=== PATIENT | male | born 1980 | race Caucasian/White ===

== ENCOUNTER 2017-04-24 22:43 | Inpatient (IN) | payer OTHER ==
[~2017-04-24] VITALS: Ht 190.5 cm; Wt 176.9 kg
[~2017-04-24 22:43] MED LIST: ASPI81TA82 PO; DIGO0.25 PO; ESOM1CAP6 PO
[2017-04-24] MEDS ORDERED: SODIUM CHLOR 0.9% 1000 ML INJ 1,000 ML IV ONE ×2 (23:00)
[2017-04-24] MEDS ORDERED: LORazepam 2 MG/ML VIAL IV PUSH ONE (23:00)
[2017-04-24] MEDS ORDERED: DILTIAZEM HCL 25 MG/5 ML VIAL IV ONE (23:15)
[2017-04-24 23:16] VITALS: BP 147/64; PULSE 136; RESP 18; TEMP 98; O2SAT 98
--- NOTE | 2017-04-24 23:22 | PD ---
HPI Chief Complaint: OD/ Ingestion Time Seen by Provider: 22:46 Travel History International Travel<30 days: No Contact w/Intl Traveler<30days: No Traveled to known affect area: No History of Present Illness HPI 36-year-old male brought in by ambulance from home after being found in his room altered with an empty bottle of diphenhydramine with a receipt that shows it was purchased today. The bottle was for a 48-hour of diphenhydramine 25 mg pills. Patient also had an empty bottle of vodka in the room. He was found by his sister. Patient arrives tachycardic and appears to be hallucinating. He is awake and is able to tell me his name. He does not answer the rest of my questions with appropriate responses, however he does speak clearly. There are no focal neurologic deficits. PFSH Past Medical History Arthritis: No Atrial Fibrillation: Yes Heart Rhythm Problems: Yes (a-fib) Cancer: No Cardiovascular Problems: Yes Chest Pain: No Congestive Heart Failure: No Diabetes: No Diminished Hearing: No Endocrine: No GERD: Yes Genitourinary: No Hiatal Hernia: No Immune Disorder: No Musculoskeletal: No Neurologic: No Psychiatric: No Reproductive: No Respiratory: No Thyroid Disease: No Ulcer: No Social History Alcohol Use: Yes (8 beers/day) Tobacco Use: No Substance Use: No Allergies-Medications (Allergen,Severity, Reaction): Coded Allergies: No Known Allergies (Verified , 06/26/15) Reported Meds & Prescriptions Reported Meds & Active Scripts Active Active Prescriptions or Reported Medications Unobtainable Review of Systems Except as stated in HPI: all other systems reviewed are Neg Physical Exam Narrative GENERAL: Well-developed, well-nourished, overweight, awake, appears to be hallucinating, SKIN: Focused skin assessment warm/dry. HEAD: Atraumatic. Normocephalic. EYES: Pupils equal, round, 3 mm, reactive to light. No scleral icterus. No injection or drainage. ENT: Mucous membranes pink and dry. NECK: Trachea midline. No JVD. CARDIOVASCULAR: Tachycardic, irregularly irregular. RESPIRATORY: No accessory muscle use. Clear to auscultation. Breath sounds equal bilaterally. GASTROINTESTINAL: Abdomen soft, non-tender, nondistended. Hepatic and splenic margins not palpable. MUSCULOSKELETAL: No obvious deformities. No clubbing. No cyanosis. No edema. NEUROLOGICAL: Awake and alert. No obvious cranial nerve deficits. Motor grossly within normal limits. Normal speech. No focal deficits. PSYCHIATRIC: Appears to have auditory and visual hallucinations. Data Data Last Documented VS Vital Signs Date Time Temp Pulse Resp B/P (MAP) Pulse Ox O2 Delivery O2 Flow Rate FiO2 04/25/17 00:03 130 26 158/79 (105) 98 Room Air 04/24/17 23:16 98.0 Orders Orders Complete Blood Count With Diff (04/24/17 22:46) Comprehensive Metabolic Panel (04/24/17 22:46) Electrocardiogram (04/24/17 22:46) Psych Screen (04/24/17 22:46) Drug Screen, Random Urine (04/24/17 22:46) Alcohol (Ethanol) (04/24/17 22:46) Salicylates (Aspirin) (04/24/17 22:46) Tylenol (Acetaminophen) (04/24/17 22:46) Sodium Chlor 0.9% 1000 Ml Inj (Ns 1000 M (04/24/17 23:00) Sodium Chlor 0.9% 1000 Ml Inj (Ns 1000 M (04/24/17 23:00) Lorazepam Inj (Ativan Inj) (04/24/17 23:00) Diltiazem Inj (Cardizem Inj) (04/24/17 23:15) Admit Order (Ed Use Only) (04/25/17 01:48) Labs Laboratory Tests Test 04/24/17 23:00 White Blood Count 10.6 TH/MM3 Red Blood Count 4.35 MIL/MM3 Hemoglobin 15.4 GM/DL Hematocrit 44.5 % Mean Corpuscular Volume 102.2 FL Mean Corpuscular Hemoglobin 35.3 PG Mean Corpuscular Hemoglobin Concent 34.6 % Red Cell Distribution Width 12.8 % Platelet Count 226 TH/MM3 Mean Platelet Volume 9.9 FL Neutrophils (%) (Auto) 76.9 % Lymphocytes (%) (Auto) 12.1 % Monocytes (%) (Auto) 10.2 % Eosinophils (%) (Auto) 0.2 % Basophils (%) (Auto) 0.6 % Neutrophils # (Auto) 8.2 TH/MM3 Lymphocytes # (Auto) 1.3 TH/MM3 Monocytes # (Auto) 1.1 TH/MM3 Eosinophils # (Auto) 0.0 TH/MM3 Basophils # (Auto) 0.1 TH/MM3 CBC Comment DIFF FINAL Differential Comment Blood Urea Nitrogen 14 MG/DL Creatinine 1.30 MG/DL Random Glucose 108 MG/DL Total Protein 7.9 GM/DL Albumin 3.6 GM/DL Calcium Level 9.1 MG/DL Alkaline Phosphatase 65 U/L Aspartate Amino Transf (AST/SGOT) 66 U/L Alanine Aminotransferase (ALT/SGPT) 96 U/L Total Bilirubin 0.6 MG/DL Sodium Level 140 MEQ/L Potassium Level 3.6 MEQ/L Chloride Level 106 MEQ/L Carbon Dioxide Level 19.6 MEQ/L Anion Gap 14 MEQ/L Estimat Glomerular Filtration Rate 62 ML/MIN Salicylates Level LESS THAN 1.7 MG/DL Acetaminophen Level LESS THAN 2.0 MCG/ML Ethyl Alcohol Level 237 MG/DL [facility] Medical Decision Making Medical Screen Exam Complete: Yes Emergency Medical Condition: Yes Differential Diagnosis Anti-cholinergic toxicity, coingestions, alcohol intoxication Narrative Course Initial vital signs show heart rate 136, blood pressure 147/64, pulse ox 98% on room air, oral temp of 98F. CBC: WBC 10.6, hemoglobin 15.4, hematocrit 44.5, MCV 102.2, platelets 226. CMP is remarkable for AST 66, ALT 96, otherwise essentially unremarkable. Tylenol and salicylate levels are negative. Alcohol level is 237. Patient's heart rate was between 140s and 150s, A. fib with RVR. Blood pressure was 160s over 100. Chart review shows that the patient was admitted about a year ago for A. fib with RVR. He was given 20 mg of IV Cardizem and his heart rate improved to the 130s. Repeat EKG showed slight increase in his QRS interval from 104 to 118. Patient was given 2 L of normal saline IV. He was also given 2 mg of IV Ativan. CT brain will be ordered although the patient 's altered mental status/hallucinations are most likely secondary to anticholinergic ingestion/toxicity. Poison control recommended supportive care and monitoring QRS interval. The generation technician refused to perform CT head because the patient seemed to agitated. Case discussed with butt welder Dr. Gaitan who will admit the patient to his service to the ICU. Diagnosis Primary Impression: Anticholinergic drug overdose Qualified Codes: T44.3X2A - Poisoning by other parasympatholytics [ anticholinergics and antimuscarinics] and spasmolytics, intentional self-harm, initial encounter Additional Impressions: Alcohol intoxication Qualified Codes: F10.921 - Alcohol use, unspecified with intoxication delirium Atrial fibrillation with RVR Scripts Unable to Obtain Active Prescriptions or Reported Meds [place] Paul MD Apr 24, 2017 23:22
[2017-04-24 23:25] LABS: AUTOMATED NEUTROPHIL # 8.2 TH/MM3 (1.8-7.7); BASOPHIL # 0.1 TH/MM3 (0-0.2); BASOPHIL % 0.6 % (0.0-2.0); EOSINOPHIL % 0.2 % (0.0-4.0); HEMATOCRIT 44.5 % (39.0-51.0); HEMO FLAGS DIFF FINAL; LYMPH % 12.1 % (9.0-44.0); LYMPHOCYTE # 1.3 TH/MM3 (1.0-4.8); MEAN CELL VOLUME 102.2 FL (80.0-100.0); MEAN CORPUSCULAR HEMOGLOBIN 35.3 PG (27.0-34.0); MEAN CORPUSCULAR HGB CONC 34.6 % (32.0-36.0); MONO % 10.2 % (0.0-8.0); NEUT % 76.9 % (16.0-70.0); PLATELET COUNT 226 TH/MM3 (150-450); RED BLOOD COUNT 4.35 MIL/MM3 (4.50-5.90); RED CELL DISTRIBUTION WIDTH 12.8 % (11.6-17.2); WHITE BLOOD COUNT 10.6 TH/MM3 (4.0-11.0)
[2017-04-24 23:46] LABS: ALKALINE PHOSPHATASE 65 U/L (45-117); TOTAL BILIRUBIN ADULT 0.6 MG/DL (0.2-1.0)
[2017-04-24 23:47] LABS: ALT (GPT) 96 U/L (12-78); ANION GAP 14 MEQ/L (5-15); AST (GOT) 66 U/L (15-37); BICARBONATE 19.6 MEQ/L (21.0-32.0); BLOOD UREA NITROGEN 14 MG/DL (7-18); CHLORIDE 106 MEQ/L (98-107); GLOMERULAR FILTRATION RATE 62 ML/MIN (>89); SODIUM (NA) 140 MEQ/L (136-145)
[2017-04-24 23:50] LABS: ACETAMINOPHEN LESS THAN 2.0 MCG/ML (10.0-30.0); ALCOHOL 237 MG/DL (0-5); POTASSIUM 3.6 MEQ/L (3.5-5.1)
[2017-04-25] VITALS (31 sets, daily range): BP systolic 112–178; BP diastolic 63–114; PULSE 101–140; RESP 22–48; TEMP 97.6–99.2; O2SAT 83–99
[2017-04-25] MEDS ORDERED: ONDANSETRON HCL 4 MG/2 ML VIAL IV PUSH PRN (03:15)
[2017-04-25] MEDS ORDERED: SENNOSIDES 8.6 MG TAB PO PRN (03:15)
[2017-04-25] MEDS ORDERED: HEPARIN SODIUM - SQ 10,000 UNITS/ML VIAL SQ SCH (03:15)
[2017-04-25] MEDS ORDERED: ACETAMINOPHEN 325 MG TAB PO PRN (03:15)
[2017-04-25] MEDS ORDERED: SODIUM CHLORIDE 0.9% FLUSH 10 ML FLUSH IV FLUSH PRN (03:15)
[2017-04-25] MEDS ORDERED: LACTULOSE SYRUP 20 GM/30 ML CUP PO PRN (03:15)
[2017-04-25] MEDS ORDERED: BISACODYL 10 MG SUPP RECTAL PRN (03:15)
[2017-04-25] MEDS ORDERED: CHLORHEXIDINE GLUCONATE 2 % 1 PACK (2 CLOTHS) TOP PRN (03:15)
[2017-04-25] MEDS ORDERED: MISCELLANEOUS NURSING INFORMATION XX SCH (03:15)
[2017-04-25] MEDS ORDERED: MAGNESIUM HYDROXIDE SUSP 30 ML CUP PO PRN (03:15)
[2017-04-25] MEDS ORDERED: RESP: ALBUTEROL 2.5 MG/IPRATROPIUM 0.5 MG NEB (PRN) INH (03:15)
[2017-04-25] MEDS: SODIUM CHLOR 0.9% 1000 ML INJ 1,000 ML IV SCH ×4 (03:46→20:00)
[2017-04-25] MEDS: METOPROLOL TARTRATE 5 MG/5 ML VIAL IV PUSH PRN ×8 (03:47→20:11)
--- NOTE | 2017-04-25 03:48 | HHI.HP ---
HPI Service Critical Care Medicine Primary Care Physician Unknown Admission Diagnosis anticholinergic toxicity, A. fib with RVR, alcohol intoxication Diagnosis: Travel History International Travel<30 Days: No Contact w/Intl Traveler <30 Da: No Traveled to Known Affected Are: No History of Present Illness 36-year-old morbidly obese male brought in by ambulance from home after being found in his room altered with an empty bottle of diphenhydramine with a receipt that shows it was purchased today. The bottle was for a 48 tablets of diphenhydramine 25 mg pills. Patient also had an empty bottle of vodka in the room as well as alcohol level is 271. He was found by his sister. Patient arrives tachycardic and appears to be hallucinating. He is awake and oriented to person only. Review of Systems ROS Unable to obtain patient is lethargic Past Family Social History Allergies: Coded Allergies: No Known Allergies (Verified , 06/26/15) Past Medical History 1) Paroxysmal Atrial Fibrillation x 13 years - no regular treatment - does NOT follow with a physician, only ER visits 2) GERD 3) Obesity 4) Etoh abuse Past Surgical History Non- Reported Medications Reported Meds & Active Scripts Active Active Prescriptions or Reported Medications Unobtainable Active Ordered Medications Current Medications Medications (Trade) Dose Ordered Sig/Mariela Route PRN Reason Start Time Stop Time Status Last Admin Dose Admin Sodium Chloride 1,000 ml @ 184 mls/hr [id number] IV 04/25/17 03:04 Sodium Chloride (NS Flush) 2 ml UNSCH PRN IV FLUSH FLUSH AFTER USING IV ACCESS 04/25/17 03:15 Sodium Chloride (NS Flush) 2 ml BID IV FLUSH 04/25/17 09:00 Acetaminophen (Tylenol) 650 mg Q6H PRN PO PAIN 1-10 AND/OR FEVER >101F 04/25/17 03:15 Famotidine (Pepcid Inj) 20 mg Q12HR IV PUSH 04/25/17 09:00 Ondansetron HCl (Zofran Inj) 4 mg Q6H PRN IV PUSH NAUSEA OR VOMITING 04/25/17 03:15 Albuterol/ Ipratropium (Duoneb Neb) 1 ampule Q2HR NEB PRN INH WHEEZING 04/25/17 03:15 Miscellaneous Information 1 [id number] XX 04/25/17 03:15 Chlorhexidine Gluconate (Chlorhexidine 2% Cloth) 3 pack Taper DAILY@04 TOP 04/25/17 04:00 04/21/18 03:59 Chlorhexidine Gluconate (Chlorhexidine 2% Cloth) 3 pack UNSCH PRN TOP HYGIENIC CARE 04/25/17 03:15 Senna/Docusate Sodium (Estela-Colace) 1 tab BID PO 04/25/17 09:00 Magnesium Hydroxide (Milk Of Magnesia Liq) 30 ml Q12H PRN PO Mild constipation 04/25/17 03:15 Sennosides (Senokot) 17.2 mg Q12H PRN PO Moderate constipation 04/25/17 03:15 Bisacodyl (Dulcolax Supp) 10 mg DAILY PRN RECTAL SEVERE CONSITIPATION 04/25/17 03:15 Lactulose (Lactulose Liq) 30 ml DAILY PRN PO SEVERE CONSITIPATION 04/25/17 03:15 Heparin Sodium (Porcine) (Heparin Inj) 5,000 units Q8H SQ 04/25/17 06:00 Metoprolol Tartrate (Lopressor Inj) 5 mg Q5M PRN IV PUSH HR>110 04/25/17 03:30 Family History - mother living, age 54 A&W - father, medical history unknown - 4 brothers, all alive and well Social History - x 3 yrs with 3 step children - etoh: 8 beers per night - tobacco: former smoker. Smoked for 8 years & quit 9 years ago. Pt averaged 1 /2 ppd x 8 years - no illicit street drugs. Use to smoke marijuana but has not done so for 2 years Physical Exam Vital Signs Vital Signs Date Time Temp Pulse Resp B/P (MAP) Pulse Ox O2 Delivery O2 Flow Rate FiO2 04/25/17 02:32 128 28 141/93 (109) 98 Room Air 04/25/17 00:03 130 26 158/79 (105) 98 Room Air 04/24/17 23:19 135 18 Room Air 04/24/17 23:16 98.0 136 18 147/64 (91) 98 Physical Exam GENERAL: Morbidly obese middle-aged male lethargic SKIN: Warm and dry. HEAD: Normocephalic. EYES: No scleral icterus. No injection or drainage. NECK: Supple, trachea midline. No JVD or lymphadenopathy. CARDIOVASCULAR: Irregularly irregular rate and rhythm without murmurs, gallops, or rubs. Tachycardia RESPIRATORY: Breath sounds equal bilaterally. No accessory muscle use. GASTROINTESTINAL: Abdomen soft, non-tender, nondistended. MUSCULOSKELETAL: No cyanosis, or edema. BACK: Nontender without obvious deformity. NEURO EXAM: Mental Status: The patient is but arousable Cranial Nerves: Pupils are round, reactive to light. Reflexes: Biceps, patellar, and Achilles are 2/4 bilaterally. No clonus. Laboratory Laboratory Tests Test 04/24/17 23:00 White Blood Count 10.6 Red Blood Count 4.35 Hemoglobin 15.4 Hematocrit 44.5 Mean Corpuscular Volume 102.2 Mean Corpuscular Hemoglobin 35.3 Mean Corpuscular Hemoglobin Concent 34.6 Red Cell Distribution Width 12.8 Platelet Count 226 Mean Platelet Volume 9.9 Neutrophils (%) (Auto) 76.9 Lymphocytes (%) (Auto) 12.1 Monocytes (%) (Auto) 10.2 Eosinophils (%) (Auto) 0.2 Basophils (%) (Auto) 0.6 Neutrophils # (Auto) 8.2 Lymphocytes # (Auto) 1.3 Monocytes # (Auto) 1.1 Eosinophils # (Auto) 0.0 Basophils # (Auto) 0.1 CBC Comment DIFF FINAL Differential Comment Blood Urea Nitrogen 14 Creatinine 1.30 Random Glucose 108 Total Protein 7.9 Albumin 3.6 Calcium Level 9.1 Alkaline Phosphatase 65 Aspartate Amino Transf (AST/SGOT) 66 Alanine Aminotransferase (ALT/SGPT) 96 Total Bilirubin 0.6 Sodium Level 140 Potassium Level 3.6 Chloride Level 106 Carbon Dioxide Level 19.6 Anion Gap 14 Estimat Glomerular Filtration Rate 62 Salicylates Level LESS THAN 1.7 Acetaminophen Level LESS THAN 2.0 Ethyl Alcohol Level 237 Result Diagram: 04/24/17 23004/[id number]/172299 Caprini VTE Risk Assessment Caprini VTE Risk Assessment: Mod/High Risk (score >= 2) Caprini Risk Assessment Model Point Value = 1 Point Value = 2 Point Value = 3 Point Value = 5 Age 41-60 Minor surgery BMI > 25 kg/m2 Swollen legs Varicose veins or History of unexplained or recurrent spontaneous Oral contraceptives or hormone replacement Sepsis (< 1 month) Serious lung disease, including pneumonia (< 1 month) Abnormal pulmonary function Acute myocardial infarction Congestive heart failure (< 1 month) History of inflammatory bowel disease Medical patient at bed rest Age 61-74 Arthroscopic surgery Major open surgery (> 45 min) Laparoscopic surgery (> 45 min) Malignancy Confined to bed (> 72 hours) Immobilizing plaster cast Central venous access Age >= 75 History of VTE Family history of VTE Factor V Leiden Prothrombin [id number] Lupus anticoagulant Anticardiolipin antibodies Elevated serum homocysteine Heparin-induced thrombocytopenia Other congenital or acquired thrombophilia Stroke (< 1 month) Elective arthroplasty Hip, pelvis, or leg fracture Acute spinal cord injury (< 1 month) Prophylaxis Regimen Total Risk Factor Score Risk Level Prophylaxis Regimen 0-1 Low Early ambulation 2 Moderate Order ONE of the following: *Sequential Compression Device (SCD) *Heparin 5000 units SQ BID 3-4 Higher Order ONE of the following medications: *Heparin 5000 units SQ TID *Enoxaparin/Lovenox 40 mg SQ daily (WT < 150 kg, CrCl > 30 mL/min) *Enoxaparin/Lovenox 30 mg SQ daily (WT < 150 kg, CrCl > 10-29 mL/min) *Enoxaparin/Lovenox 30 mg SQ BID (WT < 150 kg, CrCl > 30 mL/min) AND/OR *Sequential Compression Device (SCD) 5 or more Highest Order ONE of the following medications: *Heparin 5000 units SQ TID (Preferred with Epidurals) *Enoxaparin/Lovenox 40 mg SQ daily (WT < 150 kg, CrCl > 30 mL/min) *Enoxaparin/Lovenox 30 mg SQ daily (WT < 150 kg, CrCl > 10-29 mL/min) *Enoxaparin/Lovenox 30 mg SQ BID (WT < 150 kg, CrCl > 30 mL/min) AND *Sequential Compression Device (SCD) Assessment and Plan Assessment and Plan Altered mental status - Benadryl overdose - Poison control center notified by ED - Recommendations of supportive care only - Psych evaluation when awake Atrial fibrillation - Metoprolol when necessary to keep heart rate less than 100 Hypertension - Metoprolol and hydralazine when necessary keep SBP less than 150 Alcohol abuse - Monitor for withdrawal - [facility] protocol DVT GI prophylaxis - Teds SCDs - Subcutaneous heparin - Pepcid Critical Care: The total critical care time was 35 minutes. Time to perform other separately billable procedures was not included in the critical care time. Theodore Gaitan MD Apr 25, 2017 3:48 am
[2017-04-25] MEDS ORDERED: hydrALAZINE HCL 20 MG/ML VIAL IV PUSH PRN (04:00)
[2017-04-25] MEDS: CHLORHEXIDINE GLUCONATE 2 % 1 PACK (2 CLOTHS) TOP SCH (04:00)
[2017-04-25] MEDS ORDERED: FLUMAZENIL 0.5 MG/5 ML VIAL IV PUSH PRN (04:00)
[2017-04-25] MEDS ORDERED: LORazepam 2 MG/ML VIAL IV PUSH PRN ×3 (04:00)
[2017-04-25] MEDS ORDERED: LORazepam 1 MG TAB PO PRN (04:00)
[2017-04-25] MEDS ORDERED: LABETALOL HCL 100 MG/20 ML VIAL IV PUSH PRN (04:00)
[2017-04-25] MEDS ORDERED: LORazepam 2 MG TAB PO PRN (04:00)
[2017-04-25] MEDS: LORazepam 2 MG/ML VIAL IV PUSH PRN ×6 (04:11→06:33)
[2017-04-25] MEDS: HEPARIN SODIUM - SQ 10,000 UNITS/ML VIAL SQ SCH ×3 (05:23→19:59)
[2017-04-25] MEDS ORDERED: DEXMEDETOMIDINE INJ 200 MCG in SODIUM CHLORIDE 0.9% INJ 50 ML IV PRN (06:45)
[2017-04-25] MEDS ORDERED: HALOPERIDOL LACTATE 5 MG/ML AMP IV PUSH PRN (06:45)
[2017-04-25] MEDS ORDERED: DEXMEDETOMIDINE HCL 200 MCG/2 ML VIAL IV PUSH ONE (06:45)
[2017-04-25] MEDS: METOPROLOL TARTRATE 5 MG/5 ML VIAL IV PUSH SCH ×3 (07:17→18:22)
[2017-04-25] MEDS ORDERED: DEXMEDETOMIDINE INJ 1,000 MCG in SODIUM CHLORIDE 0.9% INJ 240 ML IV PRN (07:30)
[2017-04-25] MEDS: SODIUM CHLORIDE 0.9% FLUSH 10 ML FLUSH IV FLUSH SCH ×2 (07:41→20:00)
[2017-04-25] MEDS: DOCUSATE SODIUM 50 MG/SENNA 8.6 MG TAB PO SCH ×2 (09:00→19:59)
[2017-04-25] MEDS: FAMOTIDINE 20 MG/2 ML VIAL IV PUSH SCH ×2 (09:57→19:59)
[2017-04-25 10:07] LABS: APTT (PATIENT) 24.2 SEC (24.3-30.1); INTERNATIONAL NORMALIZED RATIO 1.1 RATIO; PROTHROMBIN TIME - PATIENT 11.5 SEC (9.8-11.6)
--- NOTE | 2017-04-25 10:13 | HHI.PR ---
Objective Vitals Vital Signs Date Time Temp Pulse Resp B/P (MAP) Pulse Ox O2 Delivery O2 Flow Rate FiO2 04/25/17 08:39 95 40 04/25/17 06:00 130 04/25/17 05:30 131 04/25/17 05:00 98.7 137 22 158/68 (98) 95 04/25/17 04:38 04/25/17 03:47 135 26 160/90 (113) 98 Room Air 04/25/17 03:45 98 04/25/17 02:32 128 28 141/93 (109) 98 Room Air 04/25/17 00:03 130 26 158/79 (105) 98 Room Air 04/24/17 23:19 135 18 Room Air 04/24/17 23:16 98.0 136 18 147/64 (91) 98 04/25/17 04/25/17 04/26/17 15:00 23:00 07:00 Intake Total 37.1 ml Balance 37.1 ml IV Total 37.1 ml Result Diagram: 04/24/17 2300 04/24/17 2300 Other Results Laboratory Tests Test 04/24/17 23:00 White Blood Count 10.6 TH/MM3 Red Blood Count 4.35 MIL/MM3 Hemoglobin 15.4 GM/DL Hematocrit 44.5 % Mean Corpuscular Volume 102.2 FL Mean Corpuscular Hemoglobin 35.3 PG Mean Corpuscular Hemoglobin Concent 34.6 % Red Cell Distribution Width 12.8 % Platelet Count 226 TH/MM3 Mean Platelet Volume 9.9 FL Neutrophils (%) (Auto) 76.9 % Lymphocytes (%) (Auto) 12.1 % Monocytes (%) (Auto) 10.2 % Eosinophils (%) (Auto) 0.2 % Basophils (%) (Auto) 0.6 % Neutrophils # (Auto) 8.2 TH/MM3 Lymphocytes # (Auto) 1.3 TH/MM3 Monocytes # (Auto) 1.1 TH/MM3 Eosinophils # (Auto) 0.0 TH/MM3 Basophils # (Auto) 0.1 TH/MM3 CBC Comment DIFF FINAL Differential Comment Blood Urea Nitrogen 14 MG/DL Creatinine 1.30 MG/DL Random Glucose 108 MG/DL Total Protein 7.9 GM/DL Albumin 3.6 GM/DL Calcium Level 9.1 MG/DL Alkaline Phosphatase 65 U/L Aspartate Amino Transf (AST/SGOT) 66 U/L Alanine Aminotransferase (ALT/SGPT) 96 U/L Total Bilirubin 0.6 MG/DL Sodium Level 140 MEQ/L Potassium Level 3.6 MEQ/L Chloride Level 106 MEQ/L Carbon Dioxide Level 19.6 MEQ/L Anion Gap 14 MEQ/L Estimat Glomerular Filtration Rate 62 ML/MIN Salicylates Level LESS THAN 1.7 MG/DL Acetaminophen Level LESS THAN 2.0 MCG/ML Ethyl Alcohol Level 237 MG/DL A/P Problem List: (1) Anticholinergic drug overdose ICD Codes: T44.3X1A - Poisoning by other parasympatholytics [anticholinergics and antimuscarinics] and spasmolytics, accidental (unintentional), initial encounter Status: Acute Plan: - Pt is a 36 y/o morbidly obese male with paroxysmal atrial fibrillation who was brought in by ambulance from home on 04/25 after being found in his room altered with an empty bottle of diphenhydramine with a receipt that shows it was purchased that same day. The bottle was for a 48 tablets of diphenhydramine 25 mg pills. Patient also had an empty bottle of vodka in the room as well as alcohol level was 271 at admission. - He was tachycardic upon admission and appeared to be hallucinating. - Pt was admitted to ICU overnight on Precedex - It was felt that his altered mental status was due to Benadryl overdose - Poison control center notified by ED and pt was recommended supportive care only - Psych evaluation when more awake and stable. (2) Atrial fibrillation with rapid ventricular response ICD Codes: I48.91 - Unspecified atrial fibrillation Status: Chronic Plan: - Pt with hx of paroxysmal atrial fibrillation - He is not compliant with medications or followup - His last 2D echo in 06/2015 noted EF 55-60% and mildly dilated LA - Pt currently in A. fib RVR with HR in the 130's - Pt currently n metoprolol IV PRN - Will convert to oral BB when more awake (3) Alcohol intoxication ICD Codes: F10.929 - Alcohol use, unspecified with intoxication, unspecified Status: Acute Plan: - Pt with hx of regular alcohol use - EtOH withdrawal precautions - Pt is on Precedex currently - MVI, thiamine, and folate - Pt will need f/u with [facility] mental health for etoh cessation program after discharge and AA (4) GERD (gastroesophageal reflux disease) ICD Codes: K21.9 - Gastro-esophageal reflux disease without esophagitis Status: Chronic Plan: - PPI - Pepcid (5) Obesity ICD Codes: E66.9 - Obesity, unspecified Status: Chronic Plan: - Following discharge pt will need f/u with a PCP and newsagent to help with weight management - Pt will need outpt w/u for [facility] Problem Qualifiers (1) Anticholinergic drug overdose: Qualified Codes: T44.3X2A - Poisoning by other parasympatholytics [ anticholinergics and antimuscarinics] and spasmolytics, intentional self-harm, initial encounter (2) Alcohol intoxication: Qualified Codes: F10.921 - Alcohol use, unspecified with intoxication delirium Missy Richey Apr 25, 2017 10:13
[2017-04-25 10:50] LABS: ALKALINE PHOSPHATASE 60 U/L (45-117); ALT (GPT) 85 U/L (12-78); ANION GAP 11 MEQ/L (5-15); AST (GOT) 57 U/L (15-37); BICARBONATE 21.3 MEQ/L (21.0-32.0); BLOOD UREA NITROGEN 10 MG/DL (7-18); CHLORIDE 110 MEQ/L (98-107); CREATINE KINASE 301 U/L (39-308); GLOMERULAR FILTRATION RATE 89 ML/MIN (>89); POTASSIUM 4.5 MEQ/L (3.5-5.1); SODIUM (NA) 142 MEQ/L (136-145); TOTAL BILIRUBIN ADULT 0.7 MG/DL (0.2-1.0)
--- NOTE | 2017-04-25 11:35 | PD.PSY.CON ---
Provisional Diagnosis Admission Date Apr 25, 2017 at 01:51 [place]. Major depressive disorder, single episode vs adjustment disorder with depressed mood, alcohol use disorder History of Present Illness Service Psychiatry Consult Requested By Critical care team Reason for Consult Suicidal attempt by overdosing Primary Care Physician Unknown HPI The patient is a 36-year-old morbidly obese man, he has history of hypertension, alcohol use disorder, GERD, no documented psychiatric history, collateral information is not available at this moment, who was brought in by ambulance from home after being found in his room altered with an empty bottle of diphenhydramine with a receipt that shows it was purchased today. The bottle was for a 48 tablets of diphenhydramine 25 mg pills. Patient also had an empty bottle of vodka in the room as well as alcohol level is 271. He was found by his sister. Patient arrives tachycardic and appears to be hallucinating. Initially was confused, disoriented to person. Through the night he has been agitated, very disorganized, at times aggressive. Patient had to be sedated this morning with Precedex. At the moment of the psychiatric evaluation the patient is completely sedated, unable to participate and provide any meaningful information for the psychiatric assessment. 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 Review of Systems ROS Limitations: Unresponsive, Uncooperative Past Family Social History Coded Allergies: No Known Allergies (Verified , 06/26/15) Discontinued Reported Medications Esomeprazole Magnesium (Nexium 24Hr) 20 Mg Cap, 20 MG PO DAILY Y for INDIGESTION , CAP 06/26/15 Aspirin (Aspir-81) 81 Mg Tab, 81 MG PO DAILY, TAB 06/26/15 Discontinued Scripts Digoxin 0.25 mg (Digoxin 0.25 mg) 0.25 Mg Tab, 0.25 MG PO DAILY for afib, #0 TAB Prov:Yung Tomlin MD 06/29/15 Current Medications Medications (Trade) Dose Ordered Sig/Mariela Route Start Time Stop Time Status Last Admin Sodium Chloride 1,000 ml @ 184 mls/hr Q5H27M IV 04/25/17 03:04 04/25/17 10:00 (NS Flush) 2 ml UNSCH PRN IV FLUSH 04/25/17 03:15 04/25/17 07:41 (NS Flush) 2 ml BID IV FLUSH 04/25/17 09:00 04/25/17 07:41 (Tylenol) 650 mg Q6H PRN PO 04/25/17 03:15 (Pepcid Inj) 20 mg Q12HR IV PUSH 04/25/17 09:00 04/25/17 09:57 (Zofran Inj) 4 mg Q6H PRN IV PUSH 04/25/17 03:15 (Duoneb Neb) 1 ampule Q2HR NEB PRN INH 04/25/17 03:15 Miscellaneous Information 1 Q361D XX 04/25/17 03:15 (Chlorhexidine 2% Cloth) 3 pack Taper DAILY@04 TOP 04/25/17 04:00 04/21/18 03:59 (Chlorhexidine 2% Cloth) 3 pack UNSCH PRN TOP 04/25/17 03:15 (Estela-Colace) 1 tab BID PO 04/25/17 09:00 (Milk Of Magnesia Liq) 30 ml Q12H PRN PO 04/25/17 03:15 (Senokot) 17.2 mg Q12H PRN PO 04/25/17 03:15 (Dulcolax Supp) 10 mg DAILY PRN RECTAL 04/25/17 03:15 (Lactulose Liq) 30 ml DAILY PRN PO 04/25/17 03:15 (Heparin Inj) 5,000 units Q8H SQ 04/25/17 06:00 04/25/17 05:23 (Lopressor Inj) 5 mg Q5M PRN IV PUSH 04/25/17 03:30 04/25/17 09:57 (Romazicon Inj) 0.2 mg Q1M PRN IV PUSH 04/25/17 04:00 (Ativan) 1 mg Q4H PRN PO 04/25/17 04:00 (Ativan Inj) 1 mg Q4H PRN IV PUSH 04/25/17 04:00 (Ativan) 2 mg Q2H PRN PO 04/25/17 04:00 (Ativan Inj) 2 mg Q2H PRN IV PUSH 04/25/17 04:00 (Ativan Inj) 2 mg Q1H PRN IV PUSH 04/25/17 04:00 (Ativan Inj) 2 mg Q15M PRN IV PUSH 04/25/17 04:00 04/25/17 06:33 (Trandate Inj) 10 mg Q4H PRN IV PUSH 04/25/17 04:00 04/25/17 05:49 (Apresoline Inj) 20 mg Q4H PRN IV PUSH 04/25/17 04:00 (Haldol Inj) 5 mg Q4H PRN IV PUSH 04/25/17 06:45 (Lopressor Inj) 5 mg Q6H IV PUSH 04/25/17 06:45 04/26/17 08:00 04/25/17 07:17 (Pneumovax-23 Inj) 25 mcg ONCE ONCE IM 04/26/17 10:00 04/26/17 10:01 (Flu (Quadrivalent) Vaccine Inj) 0.5 ml ONCE ONCE IM 04/26/17 10:00 04/26/17 10:01 Dexmedetomidine HCl 1000 mcg/ Sodium Chloride 250 ml @ 9.08 mls/hr TITRATE PRN IV 04/25/17 07:30 04/25/17 08:18 Physical Exam Vital Signs Vital Signs Date Time Temp Pulse Resp B/P (MAP) Pulse Ox O2 Delivery O2 Flow Rate FiO2 04/25/17 10:00 133 38 147/88 (107) 99 04/25/17 08:39 40 04/25/17 08:00 99.2 04/25/17 03:47 Room Air I/O 04/25/17 04/25/17 04/26/17 08:00 16:00 00:00 Intake Total 2360 ml 477.1 ml Balance 2360 ml 477.1 ml Lab Results Test 04/24/17 23:00 04/25/17 09:40 White Blood Count 10.6 TH/MM3 Red Blood Count 4.35 MIL/MM3 Hemoglobin 15.4 GM/DL Hematocrit 44.5 % Mean Corpuscular Volume 102.2 FL Mean Corpuscular Hemoglobin 35.3 PG Mean Corpuscular Hemoglobin Concent 34.6 % Red Cell Distribution Width 12.8 % Platelet Count 226 TH/MM3 Mean Platelet Volume 9.9 FL Neutrophils (%) (Auto) 76.9 % Lymphocytes (%) (Auto) 12.1 % Monocytes (%) (Auto) 10.2 % Eosinophils (%) (Auto) 0.2 % Basophils (%) (Auto) 0.6 % Neutrophils # (Auto) 8.2 TH/MM3 Lymphocytes # (Auto) 1.3 TH/MM3 Monocytes # (Auto) 1.1 TH/MM3 Eosinophils # (Auto) 0.0 TH/MM3 Basophils # (Auto) 0.1 TH/MM3 CBC Comment DIFF FINAL Differential Comment Blood Urea Nitrogen 14 MG/DL 10 MG/DL Creatinine 1.30 MG/DL 0.95 MG/DL Random Glucose 108 MG/DL 105 MG/DL Total Protein 7.9 GM/DL 7.0 GM/DL Albumin 3.6 GM/DL 3.3 GM/DL Calcium Level 9.1 MG/DL 8.2 MG/DL Alkaline Phosphatase 65 U/L 60 U/L Aspartate Amino Transf (AST/SGOT) 66 U/L 57 U/L Alanine Aminotransferase (ALT/SGPT) 96 U/L 85 U/L Total Bilirubin 0.6 MG/DL 0.7 MG/DL Sodium Level 140 MEQ/L 142 MEQ/L Potassium Level 3.6 MEQ/L 4.5 MEQ/L Chloride Level 106 MEQ/L 110 MEQ/L Carbon Dioxide Level 19.6 MEQ/L 21.3 MEQ/L Anion Gap 14 MEQ/L 11 MEQ/L Estimat Glomerular Filtration Rate 62 ML/MIN 89 ML/MIN Salicylates Level LESS THAN 1.7 MG/DL Acetaminophen Level LESS THAN 2.0 MCG/ML Ethyl Alcohol Level 237 MG/DL Prothrombin Time 11.5 SEC Prothromb Time International Ratio 1.1 RATIO Activated Partial Thromboplast Time 24.2 SEC Total Creatine Kinase 301 U/L Mental Status Examination Appearance: Disheveled, Other (obese, age appearing) Mental Status Exam Remarks Limited due to lack of cooperation, patient is sedated Assessment & Plan Problem List: (1) Adjustment disorder with depressed mood ICD Codes: F43.21 - Adjustment disorder with depressed mood Assessment & Plan: As per EMR documentation, [place] act, the patient was brought in by ambulance from home after being found in his room altered with an empty bottle of diphenhydramine with a receipt that shows it was purchased today. The bottle was for a 48 tablets of diphenhydramine 25 mg pills. Patient also had an empty bottle of vodka in the room as well as alcohol level is 271. He was found by his sister. At the moment of the psychiatric evaluation patient is sedated, not able to provide any meaningful information. He has reportedly been agitated, disorganized, at times physically combative. No collateral information couldn't be found at this moment. Patient will continue his aggressive medical treatment. He needs to be transferred to psychiatry once medically stable for psychiatric stabilization and safety. He needs to have a sitter for safety. We'll continue follow-up. Assessment & Plan Estimated LOS: Ramón Guerra MD Apr 25, 2017 11:35
[2017-04-25] MEDS ORDERED: DILTIAZEM HCL 25 MG/5 ML VIAL IV PUSH ONE (13:30)
[2017-04-25] MEDS: DILTIAZEM INJ 125 MG in SODIUM CHLORIDE 0.9% INJ 100 ML IV PRN ×2 (14:06→22:19)
[2017-04-25 14:21] LABS: BLOOD GAS BASE EXCESS -3.7 mmol/L (-2-2); BLOOD GAS CARBOXYHEMOGLOBIN 1.1 % (0-4); BLOOD GAS HCO3 20 mmol/L (22-26); BLOOD GAS METHEMOGLOBIN 1.2 % (0-2); BLOOD GAS O2 HGB SATURATION 90 % (90-100); BLOOD GAS PCO2 30 mmHg (38-42); BLOOD GAS PO2 68 mmHg (61-120); BLOOD GAS TOTAL HGB 14.2 G/DL (12.0-16.0); TEMP CORR TO 98.6
[2017-04-25 14:22] LABS: CRITICAL VALUE NO; DRAW SITE LT RADIAL; FIO2 21 %; NUMBER OF ARTERIAL PUNCTURES 1; STAT NO; ULNAR PULSE PRESENT
--- NOTE | 2017-04-25 14:25 | EKG ---
Date Performed: 04/24/2017 Time Performed: 22:49:35 PTAGE: 36 years EKG: ATRIAL FLUTTER/TACHYCARDIA WITH RAPID VENTRICULAR RESPONSE NONSPECIFIC T-WAVE ABNORMALITY A BNORMAL RHYTHM ECG NO PREVIOUS TRACING DOCTOR: Gaby Baig Interpretating Date/Time 04/25/2017 14:23:23
--- NOTE | 2017-04-25 14:26 | EKG ---
Date Performed: 04/24/2017 Time Performed: 23:37:29 PTAGE: 36 years EKG: ATRIAL FLUTTER/TACHYCARDIA WITH RAPID VENTRICULAR RESPONSE MODERATE INTRAVENTRICULAR CONDUC TION DELAY NONSPECIFIC T-WAVE ABNORMALITY ABNORMAL ECG Compared to prior tracing no significant perry e PREVIOUS TRACING : 06/26/2015 14.31 DOCTOR: Gaby Baig Interpretating Date/Time 04/25/2017 14:23:56
--- NOTE | 2017-04-25 14:26 | EKG ---
Date Performed: 04/25/2017 Time Performed: 02:39:23 PTAGE: 36 years EKG: ATRIAL FLUTTER/TACHYCARDIA WITH RAPID VENTRICULAR RESPONSE NONSPECIFIC T-WAVE ABNORMALITY A BNORMAL RHYTHM ECG Compared to prior tracing no significant change PREVIOUS TRACING : 04/24/2017 23.37 DOCTOR: Gaby Baig Interpretating Date/Time 04/25/2017 14:24:13
--- NOTE | 2017-04-25 22:12 | EKG ---
Date Performed: 04/25/2017 Time Performed: 11:16:48 PTAGE: 36 years EKG: Atrial flutter with block Compared to prior tracing no significant change DOCTOR: Ketty Perez Interpretating Date/Time 04/25/2017 22:11:22
[2017-04-26] VITALS (13 sets, daily range): BP systolic 102–183; BP diastolic 62–115; PULSE 97–128; RESP 21–37; TEMP 97.7–98.8; O2SAT 86–95
[2017-04-26] MEDS: SODIUM CHLOR 0.9% 1000 ML INJ 1,000 ML IV SCH ×5 (00:52→23:54)
[2017-04-26] MEDS: CHLORHEXIDINE GLUCONATE 2 % 1 PACK (2 CLOTHS) TOP SCH ×2 (01:05→23:54)
[2017-04-26] MEDS: METOPROLOL TARTRATE 5 MG/5 ML VIAL IV PUSH SCH ×2 (01:05→05:21)
[2017-04-26 03:58] LABS: BASOPHIL # 0.1 TH/MM3 (0-0.2); BASOPHIL % 0.8 % (0.0-2.0); EOSINOPHIL # 0.1 TH/MM3 (0-0.4); EOSINOPHIL % 1.5 % (0.0-4.0); HEMATOCRIT 40.9 % (39.0-51.0); HEMO FLAGS DIFF FINAL; LYMPH % 10.4 % (9.0-44.0); LYMPHOCYTE # 0.8 TH/MM3 (1.0-4.8); MEAN CELL VOLUME 103.1 FL (80.0-100.0); MEAN CORPUSCULAR HEMOGLOBIN 35.4 PG (27.0-34.0); MEAN CORPUSCULAR HGB CONC 34.3 % (32.0-36.0); MONO % 6.7 % (0.0-8.0); NEUT % 80.6 % (16.0-70.0); PLATELET COUNT 144 TH/MM3 (150-450); RED BLOOD COUNT 3.97 MIL/MM3 (4.50-5.90); WHITE BLOOD COUNT 7.4 TH/MM3 (4.0-11.0)
[2017-04-26 04:06] LABS: INTERNATIONAL NORMALIZED RATIO 1.1 RATIO; PROTHROMBIN TIME - PATIENT 11.5 SEC (9.8-11.6)
[2017-04-26 04:26] LABS: ANION GAP 9 MEQ/L (5-15); AST (GOT) 53 U/L (15-37); BLOOD UREA NITROGEN 11 MG/DL (7-18); CHLORIDE 106 MEQ/L (98-107); GLOMERULAR FILTRATION RATE 87 ML/MIN (>89); MAGNESIUM 1.3 MG/DL (1.5-2.5); POTASSIUM 3.8 MEQ/L (3.5-5.1); SODIUM (NA) 141 MEQ/L (136-145)
[2017-04-26 04:31] LABS: ALKALINE PHOSPHATASE 53 U/L (45-117); ALT (GPT) 76 U/L (12-78); TOTAL BILIRUBIN ADULT 1.1 MG/DL (0.2-1.0)
[2017-04-26] MEDS: HEPARIN SODIUM - SQ 10,000 UNITS/ML VIAL SQ SCH (05:21)
--- NOTE | 2017-04-26 05:32 | RADRPT ---
EXAM DATE/TIME: 04/26/2017 04:22 [place] COMPARISON: CHEST SINGLE AP, June 26, 2015, 14:46. INDICATIONS : Shortness of breath. MEDICAL HISTORY : None. SURGICAL HISTORY : None. ENCOUNTER: Initial ACUITY: 1 day PAIN SCORE: 0/10 LOCATION: Bilateral chest FINDINGS: A single view of the chest demonstrates the lungs to be symmetrically aerated without evidence of mas s, infiltrate or effusion. The cardiomediastinal contours are unremarkable. Osseous structures are intact. CONCLUSION: No acute disease. Phu Farias MD on April 26, 2017 at 5:30 Board Certified Radiologist. This report was verified electronically.
[2017-04-26] MEDS: DILTIAZEM INJ 125 MG in SODIUM CHLORIDE 0.9% INJ 100 ML IV PRN (07:51)
[2017-04-26] MEDS: FAMOTIDINE 20 MG/2 ML VIAL IV PUSH SCH ×2 (08:54→20:31)
[2017-04-26] MEDS: DOCUSATE SODIUM 50 MG/SENNA 8.6 MG TAB PO SCH ×2 (08:54→20:31)
[2017-04-26] MEDS: SODIUM CHLORIDE 0.9% FLUSH 10 ML FLUSH IV FLUSH SCH ×2 (08:55→20:31)
[2017-04-26] MEDS ORDERED: ATENOLOL 50 MG TAB PO SCH (09:00)
--- NOTE | 2017-04-26 09:14 | HHI.CCPN ---
Subjective Remarks/Hospital Course 04/25: 36-year-old morbidly obese male brought in by ambulance from home after being found in his room altered with an empty bottle of diphenhydramine with a receipt that shows it was purchased today. The bottle was for a 48 tablets of diphenhydramine 25 mg pills. Patient also had an empty bottle of vodka in the room as well as alcohol level is 271. He was found by his sister. Patient arrives tachycardic and appears to be hallucinating. He is awake and oriented to person only. 04/26: Awake and alert this morning. Remains in A. fib with RVR on Cardizem drip. Denies any shortness of breath or chest pain currently. Objective Vital Signs Date Time Temp Pulse Resp B/P (MAP) Pulse Ox O2 Delivery O2 Flow Rate FiO2 04/26/17 07:51 106 167/111 04/26/17 04:00 98.3 21 95 04/25/17 19:54 21 04/25/17 03:47 Room Air Intake and Output 04/26/17 04/26/17 04/27/17 08:00 16:00 00:00 Intake Total 2240 ml Output Total 650 ml Balance 1590 ml Result Diagram: 04/26/17 0326 04/26/17 0326 Other Results Laboratory Tests Test 04/25/17 14:15 Blood Gas Puncture Site LT RADIAL Blood Gas Patient Temperature 98.6 Blood Gas HCO3 20 mmol/L (22-26) Blood Gas Base Excess -3.7 mmol/L (-2-2) Blood Gas Oxygen Saturation 90 % (90-100) Arterial Blood pH 7.43 (7.380-7.420) Arterial Blood Partial Pressure CO2 30 mmHg (38-42) Arterial Blood Partial Pressure O2 68 mmHg (61-120) Arterial Blood Oxygen Content 18.0 Vol % (12.0-20.0) Arterial Blood Carboxyhemoglobin 1.1 % (0-4) Arterial Blood Methemoglobin 1.2 % (0-2) Blood Gas Hemoglobin 14.2 G/DL (12.0-16.0) Blood Gas Inspired Oxygen 21 % Imaging Last Impressions Chest X-Ray 04/26/17 0600 Signed Impressions: Service Date/Time: Wednesday, April 26, 2017 04:22 - CONCLUSION: No acute disease. Phu Farias MD Objective Remarks GENERAL: Morbidly obese middle-aged male, laying in bed in no acute distress. SKIN: Warm and dry. HEAD: Normocephalic. EYES: No scleral icterus. No injection or drainage. NECK: Supple, trachea midline. No JVD or lymphadenopathy. CARDIOVASCULAR: Irregularly irregular rate and rhythm without murmurs, gallops, or rubs. Tachycardia RESPIRATORY: Breath sounds equal bilaterally. No accessory muscle use. GASTROINTESTINAL: Abdomen soft, non-tender, nondistended. MUSCULOSKELETAL: No cyanosis, or edema. BACK: Nontender without obvious deformity. NEURO EXAM: Mental Status: Awake and alert, following commands. Moving all 4 extremities Cranial Nerves: Pupils are round, reactive to light. Reflexes: Biceps, patellar, and Achilles are 2/4 bilaterally. No clonus. A/P Assessment and Plan Altered mental status - Benadryl overdose - Poison control center notified by ED - Recommendations of supportive care only - Psych consulted and patient being evaluated by Dr. Ashley who recommended transfer to psych [facility] when medically cleared. Atrial fibrillation - Metoprolol when necessary to keep heart rate less than 100. On Cardizem drip for rate control. Started by mouth Cardizem and atenolol. Lovenox 100 mg subcutaneous weekly every 12 hourly for anticoagulation. Cardiology consult requested with Dr. Cavazos who has evaluated patient before. Hypertension - Metoprolol and hydralazine when necessary keep SBP less than 150 Alcohol abuse - Monitor for withdrawal - CIIL protocol - Thiamine/full aggressive/MVI. DVT GI prophylaxis - Teds SCDs - Subcutaneous heparin being switched to Lovenox 100 mg subcutaneous densely every 12 hourly. - Pepcid Consult and transfer to hospitalist service for further medical management. Transfer to [facility] when bed available. Cody Ash MD Apr 26, 2017 09:14
[2017-04-26] MEDS: MAGNESIUM SULFATE 1 GM PREMIX 100 ML IV SCH ×2 (09:30→09:45)
[2017-04-26] MEDS: THIAMINE HCL 100 MG TAB PO SCH (09:45)
[2017-04-26] MEDS: FOLIC ACID 1 MG TAB PO SCH (09:45)
[2017-04-26] MEDS: MULTIVITAMINS/MINERALS THERAPEUTIC TAB PO SCH (09:45)
[2017-04-26] MEDS ORDERED: PNEUMOCOCCAL POLYVALENT INJ 25 MCG/0.5 ML SYR IM ONE (10:00)
[2017-04-26] MEDS ORDERED: INFLUENZA VIRUS VACCINE (QUADRIVALENT) 0.5 ML SYR IM ONE (10:00)
[2017-04-26] MEDS ORDERED: DIGOXIN 0.5 MG/2 ML VIAL IVS STA (10:11)
[2017-04-26] MEDS: ENOXAPARIN SODIUM 100 MG/ML SYRINGE SQ SCH ×2 (11:03→20:31)
[2017-04-26] MEDS: ASPIRIN EC 325 MG TABEC PO SCH (11:03)
--- NOTE | 2017-04-26 11:06 | MB ---
cc: GARRY DAVIDSON DATE OF CONSULTATION: 04/26/2017 REASON FOR CONSULTATION Atrial fibrillation. HISTORY OF PRESENT ILLNESS This is a 36-year-old gentleman. He has history of morbid obesity in addition to permanent atrial fibrillation, GERD and alcohol abuse. Apparently he was found in his room with altered mental status and EMS was called. The patient had taken diphenhydramine tablets along with vodka. Upon arrival his alcohol level was elevated. He was also hallucinating and tachycardic. He is now alert and oriented, comfortable. He states he has had atrial fibrillation since age 22. This past year it has been permanent. He has not had any paroxysmal episodes. He has had a discussion with Dr. Cavazos in the past about risk/benefit profile for anticoagulation. Given his poor social habits and low CHADS-VASc score they elected for aspirin. He is on a Cardizem drip and still tachycardic. PAST MEDICAL HISTORY 1. Atrial fibrillation. 2. GERD. 3. Obesity. 4. Alcohol abuse. MEDICATIONS See med reconciliation. FAMILY HISTORY Denies any family history of early coronary artery disease or sudden cardiac . SOCIAL HISTORY He is , has three stepchildren. Drinks about eight beers a night. Former smoker. No drug use. REVIEW OF SYSTEMS A 12-point review of systems was performed and negative unless otherwise noted in the history of present illness. PHYSICAL EXAMINATION VITAL SIGNS: Heart rate 106, blood pressure 167/111 mmHg. GENERAL: Alert and oriented x3, in no acute distress. HEENT: Pupils are reactive to light and accommodation. Extraocular movements are intact. NECK: No jugular venous distention. No thyromegaly. No lymphadenopathy. No carotid bruits. LUNGS: Clear to auscultation bilaterally. CARDIOVASCULAR: Irregularly irregular rhythm. Distant heart sounds. ABDOMEN: Round, nontender, nondistended, obese. Good bowel sounds. No hepatosplenomegaly. EXTREMITIES: No clubbing, cyanosis or edema. Good peripheral pulses. NEUROLOGIC: Cranial nerves: Intact. Motor and sensory grossly intact. LABORATORY WBC 7.4, hemoglobin 14, platelet count 144. INR 1.1. Sodium 141, potassium 3.8, BUN 11, creatinine 0.97. ASSESSMENT 1. Atrial fibrillation with rapid ventricular rate. 2. Alcohol abuse. 3. Altered mental status. PLAN The patient has permanent atrial fibrillation, does not appear to be a very good anticoagulation candidate given his alcohol use and poor compliance with medications. He had an echocardiogram in 2005 which showed a structurally normal heart: No reason for us to repeat that. His tachycardia is likely reflective of his presentation with the Benadryl overdose and dehydration. Will switch his atenolol to metoprolol as it has better heart rate control, could titrate further on an every 12 hour basis as needed. He is on Cardizem oral [id number]. Will add digoxin for now for additional rate control but he may be able to discontinue that prior to discharge. I will add aspirin 325 mg a day. Will titrate off the Cardizem drip. At this point we can further titrate the beta bertha as his blood pressure will tolerate. We will sign off. If there are any further questions we are available. MD SHARLENE Lopez/YOHANA /10:12 AM /10:40 AM
--- NOTE | 2017-04-26 11:55 | HHI.PYPN ---
Subjective Remarks Patient was seen today for psychiatric reevaluation. Patient today is alert, awake, completely oriented 3. Patient reports that he feels much better today. Patient says that the reason he is here is because he has been drinking too much. Due to his increased alcohol intake he has recently lost his job, has been having marital problems, "and I lost my mind when I overdosed". Patient reports that he has been depressed, facing sadness, frequent argument with , with frequent mood swings, but he denies anhedonia, hopelessness, helplessness, at this moment he denies suicidal ideation, he denies homicidal ideation, he denies visual and auditory hallucinations. Patient admits he needs help and direction with his depression and alcohol use. She clarifies that he has been drinking every day about one point of vodka. He denies the use of illicit drugs. Review of Systems Psychiatric: COMPLAINS OF: Depression Except as stated in HPI: all other systems reviewed are Neg Mental Status Examination Appearance: Disheveled, Other (obese, age appearing) Consciousness: Alert Orientation: x4 Motor Activity: Normal gait Speech: Unremarkable Language: Adequate Fund of Knowledge: Adequate Attention and Concentration: Adequate Memory: Unremarkable Mood: Sad Affect: Sad Thought Process & Associations: Intact Thought Content: Appropriate Hallucination Type: None Delusion Type: None Suicidal Ideation: No Suicidal Plan: No Suicidal Intention: No Homicidal Ideation: No Homicidal Plan: No Homicidal Intention: No Insight: Fair Judgment: Impulsive Results Labs Test 04/25/17 12:15 04/25/17 14:15 04/26/17 03:26 Urine Opiates Screen NEG Urine Barbiturates Screen NEG Urine Amphetamines Screen NEG Urine Benzodiazepines Screen NEG Urine Cocaine Screen NEG Urine Cannabinoids Screen NEG Blood Gas Puncture Site LT RADIAL Blood Gas Patient Temperature 98.6 Blood Gas HCO3 20 mmol/L Blood Gas Base Excess -3.7 mmol/L Blood Gas Oxygen Saturation 90 % Arterial Blood pH 7.43 Arterial Blood Partial Pressure CO2 30 mmHg Arterial Blood Partial Pressure O2 68 mmHg Arterial Blood Oxygen Content 18.0 Vol % Arterial Blood Carboxyhemoglobin 1.1 % Arterial Blood Methemoglobin 1.2 % Blood Gas Hemoglobin 14.2 G/DL Blood Gas Inspired Oxygen 21 % White Blood Count 7.4 TH/MM3 Red Blood Count 3.97 MIL/MM3 Hemoglobin 14.0 GM/DL Hematocrit 40.9 % Mean Corpuscular Volume 103.1 FL Mean Corpuscular Hemoglobin 35.4 PG Mean Corpuscular Hemoglobin Concent 34.3 % Red Cell Distribution Width 13.0 % Platelet Count 144 TH/MM3 Mean Platelet Volume 9.5 FL Neutrophils (%) (Auto) 80.6 % Lymphocytes (%) (Auto) 10.4 % Monocytes (%) (Auto) 6.7 % Eosinophils (%) (Auto) 1.5 % Basophils (%) (Auto) 0.8 % Neutrophils # (Auto) 6.0 TH/MM3 Lymphocytes # (Auto) 0.8 TH/MM3 Monocytes # (Auto) 0.5 TH/MM3 Eosinophils # (Auto) 0.1 TH/MM3 Basophils # (Auto) 0.1 TH/MM3 CBC Comment DIFF FINAL Differential Comment Prothrombin Time 11.5 SEC Prothromb Time International Ratio 1.1 RATIO Blood Urea Nitrogen 11 MG/DL Creatinine 0.97 MG/DL Random Glucose 85 MG/DL Total Protein 6.4 GM/DL Albumin 3.1 GM/DL Calcium Level 8.1 MG/DL Phosphorus Level 2.7 MG/DL Magnesium Level 1.3 MG/DL Alkaline Phosphatase 53 U/L Aspartate Amino Transf (AST/SGOT) 53 U/L Alanine Aminotransferase (ALT/SGPT) 76 U/L Total Bilirubin 1.1 MG/DL Sodium Level 141 MEQ/L Potassium Level 3.8 MEQ/L Chloride Level 106 MEQ/L Carbon Dioxide Level 26.0 MEQ/L Anion Gap 9 MEQ/L Estimat Glomerular Filtration Rate 87 ML/MIN Vitals/IOs Vital Signs Date Time Temp Pulse Resp B/P (MAP) Pulse Ox O2 Delivery O2 Flow Rate FiO2 04/26/17 07:51 106 167/111 04/26/17 04:00 98.3 21 95 04/25/17 19:54 21 04/25/17 03:47 Room Air Intake and Output 04/26/17 04/26/17 04/27/17 08:00 16:00 00:00 Intake Total 2240 ml Output Total 650 ml Balance 1590 ml Assessment & Plan Problem List: (1) Adjustment disorder with depressed mood ICD Codes: F43.21 - Adjustment disorder with depressed mood Assessment & Plan: Today the patient is alert, oriented 3. He reports feeling much better. Patient reports that he has been feeling depressed due to marital problems and continues use of alcohol. At this moment he denies suicidal ideation, but patient doesn't elaborate about recent suicidal attempt. He is in an increased risk of danger to self at this moment. He needs psychiatric admission for stabilization. Continue CIWA. Start Prozac 10 mg for depression. Brief supportive psychotherapy provided. Assessment & Plan Estimated LOS: days Justification for Cont. Inpt. Patient needs psychiatric admission for stabilization and safety. Ramón Bhatti MD Apr 26, 2017 11:55
[2017-04-26] MEDS: DILTIAZEM HCL 60 MG TAB PO SCH ×3 (12:09→23:54)
[2017-04-26] MEDS: METOPROLOL TARTRATE 50 MG TAB PO SCH (20:31)
[2017-04-27] VITALS (13 sets, daily range): BP systolic 132–146; BP diastolic 66–91; PULSE 85–116; RESP 25–31; TEMP 98.3–99; O2SAT 92–96
[2017-04-27] MEDS: DILTIAZEM HCL 60 MG TAB PO SCH (05:27)
--- NOTE | 2017-04-27 08:27 | PD.CONS ---
HPI Service [facility] Hospitalists Consult Requested By Dr. Ash Reason for Consult assume medical care Primary Care Physician Dr. Duke Diagnoses: (1) Anticholinergic drug overdose (2) Atrial fibrillation with rapid ventricular response (3) Alcohol intoxication (4) GERD (gastroesophageal reflux disease) (5) Obesity History of Present Illness This a morbidly obese 36-year-old male patient with a past medical history which includes persistent atrial fibrillation since age 22, GERD, morbid obesity , EtOH abuse and depression. Patient was found by his sister on 04/25/2017 he had altered mental status and empty bottle of diphenhydramine 25 mg tablets total of 48 tablets were missing. Patient also found with an empty bottle of vodka alcohol level 271 on admission. The time of admission patient was tachycardiac atrial fibrillation RVR and appear to be hallucinating. 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 Patient was initially placed on Cardizem drip which has been titrated off and is currently on Cardizem 60 mg by mouth every 6 hours, metoprolol 50 mg every 12 hours and digoxin 0.25 mg daily. Heart rate in the high 90s blood pressure 140s over 70s. Patient is also being followed by psychiatry who recommended inpatient psychiatric treatment once he is medically stable. Cardiology has been consulted patient seen by Dr. Salcedo who evaluated patient recommends. Cardizem, titrate metoprolol to control heart rate as blood pressure allows and digoxin. Cardiology also states that digoxin may be able to be discontinued prior to discharge. Regarding anticoagulation due to patient 's poor social habits and low CHADS-VASc score recommend aspirin 325 mg daily. Past Family Social History Past Medical History Persistent atrial fibrillation since age 22, GERD, obesity, EtOH abuse and depression Past Surgical History Denies Reported Medications Active Prescriptions or Reported Medications Unobtainable Allergies: Coded Allergies: No Known Allergies (Verified , 06/26/15) Active Ordered Medications Active Prescriptions or Reported Medications Unobtainable Family History - mother living, age 54 alive and well - father, medical history unknown - 4 brothers, all alive and well Social History - x 3 yrs with 3 step children - etoh: 1 pint vodka per night - tobacco: former smoker. Smoked for 8 years & quit 9 years ago. Pt averaged 1 /2 ppd x 8 years - no illicit street drugs. Use to smoke marijuana but has not done so for 2 years Physical Exam Vital Signs Vital Signs Date Time Temp Pulse Resp B/P (MAP) Pulse Ox O2 Delivery O2 Flow Rate FiO2 04/27/17 07:26 95 21 04/27/17 06:00 98 04/27/17 04:00 98 04/27/17 04:00 98.3 98 25 144/75 (98) 96 04/27/17 02:00 102 04/27/17 00:00 98.3 104 25 144/66 (92) 95 04/27/17 00:00 104 04/27/17 00:00 104 04/26/17 22:00 109 04/26/17 20:04 94 04/26/17 20:00 98.0 103 23 140/72 (94) 95 04/26/17 20:00 103 04/26/17 18:00 103 04/26/17 16:00 97 04/26/17 16:00 97.7 98 23 156/112 (127) 86 04/26/17 14:00 98 04/26/17 12:00 98 04/26/17 12:00 98 04/26/17 12:00 98.8 98 37 175/81 (112) 92 04/26/17 10:00 114 Physical Exam GENERAL: This is an obese, well-developed patient, in no apparent distress. SKIN: No rashes, ecchymoses or lesions. Cool and dry. HEAD: Atraumatic. Normocephalic. No temporal or scalp tenderness. EYES: Extraocular motions intact. No scleral icterus. No injection or drainage. CARDIOVASCULAR: irregularly irregular tachycardic RESPIRATORY: Clear to auscultation. Breath sounds equal bilaterally. GASTROINTESTINAL: Abdomen soft, non-tender, nondistended. No guarding. MUSCULOSKELETAL: Extremities without clubbing, cyanosis, or edema. No joint tenderness, effusion, or edema noted. No calf tenderness. Negative Homans sign bilaterally. NEUROLOGICAL: Awake and alert. No focal deficits noted. Motor and sensory grossly within normal limits. Five out of 5 muscle strength in all muscle groups. Normal speech. Laboratory Laboratory Tests Test 04/27/17 06:45 Digoxin Level 0.5 Result Diagram: 04/26/17 0326 04/26/17 0326 Imaging Last Impressions Chest X-Ray 04/26/17 0600 Signed Impressions: Service Date/Time: Wednesday, April 26, 2017 04:22 - CONCLUSION: No acute disease. Phu Farias MD Assessment and Plan Problem List: (1) Anticholinergic drug overdose ICD Codes: T44.3X1A - Poisoning by other parasympatholytics [anticholinergics and antimuscarinics] and spasmolytics, accidental (unintentional), initial encounter Status: Acute Plan: - Pt is a 36 y/o morbidly obese male with persistent atrial fibrillation who was brought in by ambulance from home on 04/25 after being found in his room altered with an empty bottle of diphenhydramine with a receipt that shows it was purchased that same day. The bottle was for a 48 tablets of diphenhydramine 25 mg pills. Patient also had an empty bottle of vodka in the room as well as alcohol level was 271 at admission. - He was tachycardic upon admission and appeared to be hallucinating. - Pt was admitted to ICU overnight on Precedex and Cardizem drip - It was felt that his altered mental status was due to Benadryl overdose - Poison control center notified by ED and pt was recommended supportive care only - Psych also following patient recommends inpatient admission once he is medically stable - transfer to step down once bed available - if patient remains stable plan to DC to inpatient psych tomorrow (2) Atrial fibrillation with rapid ventricular response ICD Codes: I48.91 - Unspecified atrial fibrillation Status: Chronic Plan: - Pt with hx of persistent atrial fibrillation - He is not compliant with medications or followup - His last 2D echo in 06/2015 noted EF 55-60% and mildly dilated LA - Pt currently in A. fib RVR with HR in the high 90s - Cardizem 60 mg PO every 6 hours, metoprolol 50 mg PO every 12 hours and digoxin 0.25 mg PO daily - will start long acting Cardizem today and continue to monitor HR - check dig level in AM (3) Alcohol intoxication ICD Codes: F10.929 - Alcohol use, unspecified with intoxication, unspecified Status: Acute Plan: - Pt with hx of regular alcohol use - EtOH withdrawal precautions - Pt was initially on Precedex which has been weaned - Patient currently on Librium 10 mg 3 times a day - MVI, thiamine, and folate - Pt will need f/u with [facility] mental health for etoh cessation program after discharge and AA (4) GERD (gastroesophageal reflux disease) ICD Codes: K21.9 - Gastro-esophageal reflux disease without esophagitis Status: Chronic Plan: - PPI - Pepcid (5) Obesity ICD Codes: E66.9 - Obesity, unspecified Status: Chronic Plan: - Following discharge pt will need f/u with a PCP and char puller to help with weight management - Pt will need outpt w/u for [facility]ERSON Problem Qualifiers (1) Anticholinergic drug overdose: Qualified Codes: T44.3X2A - Poisoning by other parasympatholytics [ anticholinergics and antimuscarinics] and spasmolytics, intentional self-harm, initial encounter (2) Alcohol intoxication: Qualified Codes: F10.921 - Alcohol use, unspecified with intoxication delirium Elmira Xie Apr 27, 2017 08:27
[2017-04-27] MEDS: DIGOXIN 0.25 MG TAB PO SCH (08:46)
[2017-04-27] MEDS: SODIUM CHLORIDE 0.9% FLUSH 10 ML FLUSH IV FLUSH SCH ×2 (08:46→20:35)
[2017-04-27] MEDS: THIAMINE HCL 100 MG TAB PO SCH (08:46)
[2017-04-27] MEDS: FOLIC ACID 1 MG TAB PO SCH (08:46)
[2017-04-27] MEDS: ASPIRIN EC 325 MG TABEC PO SCH (08:47)
[2017-04-27] MEDS: DOCUSATE SODIUM 50 MG/SENNA 8.6 MG TAB PO SCH ×2 (08:47→20:35)
[2017-04-27] MEDS: MULTIVITAMINS/MINERALS THERAPEUTIC TAB PO SCH (08:47)
[2017-04-27] MEDS: METOPROLOL TARTRATE 50 MG TAB PO SCH ×2 (08:47→20:35)
[2017-04-27] MEDS: FLUoxetine HCL 10 MG CAP PO SCH (08:47)
[2017-04-27] MEDS: FAMOTIDINE 20 MG/2 ML VIAL IV PUSH SCH ×2 (08:48→20:35)
[2017-04-27] MEDS: ENOXAPARIN SODIUM 100 MG/ML SYRINGE SQ SCH (08:48)
[2017-04-27] MEDS ORDERED: DILTIAZEM-CD 240 MG CAP ER PO SCH (12:00)
[2017-04-27] MEDS: SODIUM CHLOR 0.9% 1000 ML INJ 1,000 ML IV SCH ×2 (13:01→21:01)
--- NOTE | 2017-04-27 16:04 | EKG ---
Date Performed: 04/26/2017 Time Performed: 07:44:18 PTAGE: 36 years EKG: Atrial fibrillation with rapid ventricular response. IV conduction defect Inferior and ante rior T wave changes are nonspecific Abnormal ECG Since PREVIOUS TRACING , no significant change noted PREVIOUS TRACIN04/25/2017 11.16 DOCTOR: Forrest Hensley Interpretating Date/Time 04/27/2017 16:02:37
[2017-04-27] MEDS ORDERED: DILTIAZEM-CD 120 MG CAP ER PO ONE (17:45)
[2017-04-28] VITALS (13 sets, daily range): BP systolic 134–176; BP diastolic 70–89; PULSE 85–109; RESP 17–25; TEMP 97.6–98.7; O2SAT 92–93
[2017-04-28] MEDS: CHLORHEXIDINE GLUCONATE 2 % 1 PACK (2 CLOTHS) TOP SCH ×2 (04:00→21:21)
[2017-04-28] MEDS: SODIUM CHLOR 0.9% 1000 ML INJ 1,000 ML IV SCH (05:01)
[2017-04-28] MEDS ORDERED: FLUO10CA4 PO (07:56)
[2017-04-28] MEDS ORDERED: ASPI325T33 PO (07:56)
--- NOTE | 2017-04-28 08:06 | HHI.DS ---
Discharge Summary Admission Date Apr 25, 2017 at 01:51 Admitting Diagnosis anticholinergic toxicity, A. fib with RVR, alcohol intoxication (1) Anticholinergic drug overdose ICD Codes: T44.3X1A - Poisoning by other parasympatholytics [anticholinergics and antimuscarinics] and spasmolytics, accidental (unintentional), initial encounter Status: Acute (2) Atrial fibrillation with rapid ventricular response ICD Codes: I48.91 - Unspecified atrial fibrillation Status: Acute (3) Alcohol intoxication ICD Codes: F10.929 - Alcohol use, unspecified with intoxication, unspecified Status: Acute (4) GERD (gastroesophageal reflux disease) ICD Codes: K21.9 - Gastro-esophageal reflux disease without esophagitis Status: Chronic (5) Obesity ICD Codes: E66.9 - Obesity, unspecified Status: Chronic Consultants Dr. Davy Gaitan Procedures none Brief History This a morbidly obese 36-year-old male patient with a past medical history which includes persistent atrial fibrillation since age 22, GERD, morbid obesity , EtOH abuse and depression. Patient was found by his sister on 04/25/2017 he had altered mental status and empty bottle of diphenhydramine 25 mg tablets total of 48 tablets were missing. Patient also found with an empty bottle of vodka alcohol level 271 on admission. The time of admission patient was tachycardiac atrial fibrillation RVR and appear to be hallucinating. 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 Patient was initially placed on Cardizem drip which has been titrated off and is currently on Cardizem 60 mg by mouth every 6 hours, metoprolol 50 mg every 12 hours and digoxin 0.25 mg daily. Heart rate in the high 90s blood pressure 140s over 70s. Patient is also being followed by psychiatry who recommended inpatient psychiatric treatment once he is medically stable. Cardiology has been consulted patient seen by Dr. Salcedo who evaluated patient recommends. Cardizem, titrate metoprolol to control heart rate as blood pressure allows and digoxin. Cardiology also states that digoxin may be able to be discontinued prior to discharge. Regarding anticoagulation due to patient 's poor social habits and low CHADS-VASc score recommend aspirin 325 mg daily. CBC/BMP: 04/26/17 0326 04/26/17 0326 Significant Findings Laboratory Tests Test 04/25/17 09:40 04/25/17 12:15 04/25/17 14:15 04/26/17 03:26 Activated Partial Thromboplast Time 24.2 SEC (24.3-30.1) Albumin 3.3 GM/DL (3.4-5.0) 3.1 GM/DL (3.4-5.0) Calcium Level 8.2 MG/DL (8.5-10.1) 8.1 MG/DL (8.5-10.1) Aspartate Amino Transf (AST/SGOT) 57 U/L (15-37) 53 U/L (15-37) Alanine Aminotransferase (ALT/SGPT) 85 U/L (12-78) Chloride Level 110 MEQ/L (98-107) Blood Gas HCO3 20 mmol/L (22-26) Blood Gas Base Excess -3.7 mmol/L (-2-2) Arterial Blood pH 7.43 (7.380-7.420) Arterial Blood Partial Pressure CO2 30 mmHg (38-42) Red Blood Count 3.97 MIL/MM3 (4.50-5.90) Mean Corpuscular Volume 103.1 FL (80.0-100.0) Mean Corpuscular Hemoglobin 35.4 PG (27.0-34.0) Platelet Count 144 TH/MM3 (150-450) Neutrophils (%) (Auto) 80.6 % (16.0-70.0) Lymphocytes # (Auto) 0.8 TH/MM3 (1.0-4.8) Magnesium Level 1.3 MG/DL (1.5-2.5) Total Bilirubin 1.1 MG/DL (0.2-1.0) Estimat Glomerular Filtration Rate 87 ML/MIN (>89) Test 04/27/17 06:45 04/28/17 06:15 Digoxin Level 0.5 NG/ML (0.8-2.0) 0.4 NG/ML (0.8-2.0) PE at Discharge GENERAL: This is an obese, well-developed patient, in no apparent distress. CARDIOVASCULAR: irregularly irregular RESPIRATORY: Clear to auscultation. Breath sounds equal bilaterally. GASTROINTESTINAL: Abdomen soft, non-tender, nondistended. No guarding. MUSCULOSKELETAL: Extremities without clubbing, cyanosis, or edema. No joint tenderness, effusion, or edema noted. No calf tenderness. Negative Homans sign bilaterally. NEUROLOGICAL: Awake and alert. No focal deficits. Motor and sensory grossly within normal limits. Five out of 5 muscle strength in all muscle groups. Normal speech. Hospital Course Anticholinergic drug overdose - Pt is a 36 y/o morbidly obese male with persistent atrial fibrillation who was brought in by ambulance from home on 04/25 after being found in his room altered with an empty bottle of diphenhydramine with a receipt that shows it was purchased that same day. The bottle was for a 48 tablets of diphenhydramine 25 mg pills. Patient also had an empty bottle of vodka in the room as well as alcohol level was 271 at admission. - He was tachycardic upon admission and appeared to be hallucinating. - Pt was admitted to ICU overnight on Precedex and Cardizem drip - It was felt that his altered mental status was due to Benadryl overdose - Poison control center notified by ED and pt was recommended supportive care only - Psych also following patient recommends inpatient admission once he is medically stable - transfer to step down once bed available - DC to inpatient psych Atrial fibrillation with rapid ventricular response - Pt with hx of persistent atrial fibrillation - He is not compliant with medications or followup - His last 2D echo in 06/2015 noted EF 55-60% and mildly dilated LA - Pt currently in A. fib RVR with HR in the high 90s - Cardizem 60 mg PO every 6 hours, metoprolol 50 mg PO every 12 hours and digoxin 0.25 mg PO daily - Cardizem 360 mg daily - check dig level 0.4 Alcohol intoxication - Pt with hx of regular alcohol use - EtOH withdrawal precautions - Pt was initially on Precedex which has been weaned - Patient currently on Librium 10 mg 3 times a day - MVI, thiamine, and folate - Pt will need f/u with [facility] mental health for etoh cessation program after discharge and AA GERD (gastroesophageal reflux disease) - PPI - Pepcid Obesity - Following discharge pt will need f/u with a PCP and production hand to help with weight management - Pt will need outpt w/u for [facility]ERSON Pt Condition on Discharge: Stable Discharge Disposition: Disc to Psych Care Fac Discharge Instructions DIET: Follow Instructions for: Weight Management Activities you can perform: Regular-No Restrictions Follow up Referrals: Cardiology - [address] [facility] - 2-3 Days with [facility] PCP Follow-up - [address] Duke New Medications: Famotidine (Pepcid) 20 Mg Tab 20 MG PO BID for stomach protection, #60 TAB [address] (Aspirin EC) 325 Mg Tabdr 325 MG PO DAILY for Blood Clot Prevention, #30 TAB 0 Refills Digoxin (Digoxin) 0.25 Mg Tab 0.25 MG PO DAILY for heart rate, #30 TAB 0 Refills Diltiazem CD 24 HR (Cardizem CD 24 HR) 180 Mg Caper 360 MG PO DAILY for heart rate, #30 CAP 0 Refills Fluoxetine (Pmdd) (Fluoxetine (Pmdd)) 10 Mg Cap 10 MG PO DAILY for Depression Control, #30 CAP 0 Refills Metoprolol Tartrate (Lopressor) 50 Mg Tab 50 MG PO Q12HR for blood pressure/ heart rate, #60 TAB 0 Refills Additional Information - Following discharge pt will need f/u with a PCP, cardiology, production hand to help with weight management, outpt w/u for obstructive sleep apnea, [facility] mental health for etoh cessation program after discharge and Elmira Woodward Apr 28, 2017 08:06
[2017-04-28] MEDS ORDERED: FAMO1TAB37 PO (08:09)
--- NOTE | 2017-04-28 08:10 | HHI.DCPOC ---
Discharge Care Plan Diagnosis: (1) ETOH abuse (2) Alcohol intoxication (3) Anticholinergic drug overdose (4) Atrial fibrillation with RVR (5) Obesity Goals to Promote Your Health * To prevent worsening of your condition and complications * To maintain your health at the optimal level Directions to Meet Your Goals Take your medications as prescribed Follow your dietary instruction Follow activity as directed Keep your appointments as scheduled Take your immunizations and boosters as scheduled If your symptoms worsen call your PCP, if no PCP go to Urgent Care Center or Emergency Room Smoking is Dangerous to Your Health. Avoid second hand smoke Call the 24-hour hour crisis hotline for domestic abuse at Elmira Xie Apr 28, 2017 08:10
[2017-04-28] MEDS: MULTIVITAMINS/MINERALS THERAPEUTIC TAB PO SCH (08:53)
[2017-04-28] MEDS: DOCUSATE SODIUM 50 MG/SENNA 8.6 MG TAB PO SCH ×2 (08:53→21:00)
[2017-04-28] MEDS: FLUoxetine HCL 10 MG CAP PO SCH (08:53)
[2017-04-28] MEDS: THIAMINE HCL 100 MG TAB PO SCH (08:53)
[2017-04-28] MEDS: METOPROLOL TARTRATE 50 MG TAB PO SCH ×2 (08:54→21:20)
[2017-04-28] MEDS: DIGOXIN 0.25 MG TAB PO SCH (08:54)
[2017-04-28] MEDS: FOLIC ACID 1 MG TAB PO SCH (08:54)
[2017-04-28] MEDS: FAMOTIDINE 20 MG/2 ML VIAL IV PUSH SCH ×2 (08:54→21:20)
[2017-04-28] MEDS: ASPIRIN EC 325 MG TABEC PO SCH (08:54)
[2017-04-28] MEDS: ENOXAPARIN SODIUM 100 MG/ML SYRINGE SQ SCH (08:55)
[2017-04-28] MEDS: SODIUM CHLORIDE 0.9% FLUSH 10 ML FLUSH IV FLUSH SCH ×2 (08:55→21:21)
[2017-04-28] MEDS ORDERED: DILTIAZEM-CD 180 MG CAP ER PO SCH (09:00)
--- NOTE | 2017-04-28 10:51 | HHI.PR ---
Subjective Remarks Patient resting in bed offers no specific complaints continues to be in A Fib rate high 90's to low 100s despite Cardizem 360, metoprolol 50 mg PO BID and dig Objective Vitals Vital Signs Date Time Temp Pulse Resp B/P (MAP) Pulse Ox O2 Delivery O2 Flow Rate FiO2 04/28/17 08:35 93 21 04/28/17 06:00 93 04/28/17 04:00 98.6 91 18 134/72 (92) 92 04/28/17 04:00 91 04/28/17 02:00 86 04/28/17 00:00 95 04/28/17 00:00 98.7 95 25 142/70 (94) 93 04/27/17 22:00 103 04/27/17 20:00 116 04/27/17 20:00 98.8 116 31 146/67 (93) 92 04/27/17 18:00 98 04/27/17 16:00 95 04/27/17 16:00 99.0 95 31 132/73 (92) 92 04/27/17 14:00 95 04/27/17 12:00 98.9 113 26 139/91 (107) 94 04/27/17 12:00 113 Result Diagram: 04/26/17 0326 04/26/17 0326 Imaging Last Impressions Chest X-Ray 04/26/17 0600 Signed Impressions: Service Date/Time: Wednesday, April 26, 2017 04:22 - CONCLUSION: No acute disease. Phu Farias MD Objective Remarks GENERAL: This is an obese, well-developed patient, in no apparent distress. CARDIOVASCULAR: irregularly irregular, tachycardic RESPIRATORY: Clear to auscultation. Breath sounds equal bilaterally. GASTROINTESTINAL: Abdomen soft, non-tender, nondistended. No guarding. MUSCULOSKELETAL: Extremities without clubbing, cyanosis, or edema. No joint tenderness, effusion, or edema noted. No calf tenderness. Negative Homans sign bilaterally. NEUROLOGICAL: Awake and alert. No focal deficits. Motor and sensory grossly within normal limits. Five out of 5 muscle strength in all muscle groups. Normal speech. Procedures none A/P Problem List: (1) Anticholinergic drug overdose ICD Codes: T44.3X1A - Poisoning by other parasympatholytics [anticholinergics and antimuscarinics] and spasmolytics, accidental (unintentional), initial encounter Status: Acute Plan: - Pt is a 36 y/o morbidly obese male with persistent atrial fibrillation who was brought in by ambulance from home on 04/25 after being found in his room altered with an empty bottle of diphenhydramine with a receipt that shows it was purchased that same day. The bottle was for a 48 tablets of diphenhydramine 25 mg pills. Patient also had an empty bottle of vodka in the room as well as alcohol level was 271 at admission. - He was tachycardic upon admission and appeared to be hallucinating. - Pt was admitted to ICU overnight on Precedex and Cardizem drip - It was felt that his altered mental status was due to Benadryl overdose - Poison control center notified by ED and pt was recommended supportive care only - Psych also following patient recommends inpatient admission once he is medically stable - transfer to step down once bed available - if patient remains stable plan to DC to inpatient psych once HR stable (2) Atrial fibrillation with rapid ventricular response ICD Codes: I48.91 - Unspecified atrial fibrillation Status: Chronic Plan: - Pt with hx of persistent atrial fibrillation - He is not compliant with medications or followup - His last 2D echo in 06/2015 noted EF 55-60% and mildly dilated LA - Pt currently in A. fib RVR with HR in the high 90s - Cardizem 60 mg PO every 6 hours, metoprolol 50 mg PO every 12 hours and digoxin 0.25 mg PO daily - continue Cardizem 360 mg daily - continue to monitor HR - continues to be in A Fib rate high 90's to low 100s despite Cardizem 360, metoprolol 50 mg PO BID and dig, will consult Dr. Martin for evaluation and possible EPS/ablation (3) Alcohol intoxication ICD Codes: F10.929 - Alcohol use, unspecified with intoxication, unspecified Status: Acute Plan: - Pt with hx of regular alcohol use - EtOH withdrawal precautions - Pt was initially on Precedex which has been weaned - Patient currently on Librium 10 mg 3 times a day - MVI, thiamine, and folate - Pt will need f/u with [facility] mental health for etoh cessation program after discharge and AA (4) GERD (gastroesophageal reflux disease) ICD Codes: K21.9 - Gastro-esophageal reflux disease without esophagitis Status: Chronic Plan: - PPI - Pepcid (5) Obesity ICD Codes: E66.9 - Obesity, unspecified Status: Chronic Plan: - Following discharge pt will need f/u with a PCP and optical element coater to help with weight management - Pt will need outpt w/u for [facility]ERSON Assessment and Plan Patient examined. Assessment and plan formulated with Elmira Xie PA-C. I agree with the above. Problem Qualifiers (1) Anticholinergic drug overdose: Qualified Codes: T44.3X2A - Poisoning by other parasympatholytics [ anticholinergics and antimuscarinics] and spasmolytics, intentional self-harm, initial encounter (2) Alcohol intoxication: Qualified Codes: F10.921 - Alcohol use, unspecified with intoxication delirium Elmira Xie Apr 28, 2017 10:51 Remigio Batres DO Apr 29, 2017 10:12
[2017-04-29] VITALS (9 sets, daily range): BP systolic 148–166; BP diastolic 88–97; PULSE 69–99; RESP 19–25; TEMP 97.7–98.6; O2SAT 93–96
--- NOTE | 2017-04-29 08:57 | MB ---
cc: RAF MOREJON M.D. DATE OF CONSULTATION: 04/28/2017 REASON FOR CONSULTATION: Atrial fibrillation with biventricular response. HISTORY: Mr. Lion is a 36-year-old gentleman with morbid obesity, previous atrial fibrillation, alcohol abuse, apparently the gentleman was admitted due <<0:42>> . Apparently is taking <<0:46>> . Apparently has atrial fibrillation for years. During hospitalization heart rate very difficult to control. I was consulted for further evaluation and management. The chart was reviewed. The patient was evaluated. Case discussed with the patient and his family, was well as Dr. Batres. ALLERGIES None reported. SOCIAL HISTORY The patient drinks at least eight beers a night, quit smoking. FAMILY HISTORY Noncontributory to his current medical condition. MEDICATIONS 1. He is on Cardizem. 2. Aspirin. 3. Librium 4. Digoxin. 5. Cardizem CD 360 mg a day 6. Folic acid. 7. Prozac. 8. Folic acid. REVIEW OF SYSTEMS Currently the patient refers feeling the same or better. NO chest pain, discomfort, or palpitation. PHYSICAL EXAMINATION: IN GENERAL: Physical exam, fully oriented in bed. VITAL SIGNS: Blood pressure 158/89, pulse around 110 irregular, respiratory 18 LUNGS: Ventilated. CARDIOVASCULAR SYSTEM: S1,S2. tachycardiac, irregular. ABDOMEN: Soft. No mass or bruit. EXTREMITIES: No edema. RADIOLOGIC: Electrocardiogram showed atrial fibrillation with biventricular response. LABORATORY DATA Hemoglobin 14, white blood cell 7.4, potassium is 3.8, creatinine is 0.97. TSH 2.58, INR 1.1. ASSESSMENT AND RECOMMENDATIONS Mr. Lion is a 36-year-old gentleman with atrial fibrillation. He had morbid obesity. He may have also sleep apnea. The atrial fibrillation was unable to control despite multiple medications. But the patient is severely obese, his weight needs to be controlled. We can increase the Cardizem to 240 mg twice a day. Also metoprolol up to 100 mg twice a day. To try and control the heart rate. Because of his age the best approach is electrophysiology study and ablation. The case was discussed with him. The best approach will be anticoagulation for 2 weeks and ablation, but he has heart rate cannot be controlled and then I will proceed with ablation while in the hospital. I have mentioned before case extensively discussed with him his family and Dr. Batres. I will monitor him during hospitalization. His condition <<4:10>> Raf Morejon MD / /10:45 PM /8:41 AM
[2017-04-29] MEDS: SODIUM CHLORIDE 0.9% FLUSH 10 ML FLUSH IV FLUSH SCH ×2 (09:00→21:00)
[2017-04-29] MEDS: DOCUSATE SODIUM 50 MG/SENNA 8.6 MG TAB PO SCH ×2 (09:31→21:00)
[2017-04-29] MEDS: ASPIRIN EC 325 MG TABEC PO SCH (09:32)
[2017-04-29] MEDS: THIAMINE HCL 100 MG TAB PO SCH (09:32)
[2017-04-29] MEDS: DIGOXIN 0.25 MG TAB PO SCH (09:32)
[2017-04-29] MEDS: FOLIC ACID 1 MG TAB PO SCH (09:32)
[2017-04-29] MEDS: FLUoxetine HCL 10 MG CAP PO SCH (09:32)
[2017-04-29] MEDS: MULTIVITAMINS/MINERALS THERAPEUTIC TAB PO SCH (09:32)
[2017-04-29] MEDS: FAMOTIDINE 20 MG/2 ML VIAL IV PUSH SCH ×2 (09:32→22:07)
[2017-04-29] MEDS: ENOXAPARIN SODIUM 100 MG/ML SYRINGE SQ SCH (09:33)
--- NOTE | 2017-04-29 09:45 | HHI.PR ---
Subjective Remarks No new complaints. Pt denies chest pain, palpitations, or SOB. Objective Vitals Vital Signs Date Time Temp Pulse Resp B/P (MAP) Pulse Ox O2 Delivery O2 Flow Rate FiO2 04/29/17 06:00 98 04/29/17 04:00 98.6 97 21 166/95 (118) 94 04/29/17 04:00 97 04/29/17 02:00 93 04/29/17 00:00 98.6 82 25 154/97 (116) 93 04/29/17 00:00 82 04/28/17 22:00 96 04/28/17 20:00 98.7 99 24 176/85 (115) 92 04/28/17 20:00 99 04/28/17 18:00 109 04/28/17 18:00 109 04/28/17 16:00 97.9 102 20 159/89 (112) 92 04/28/17 16:00 102 04/28/17 14:00 85 04/28/17 12:00 102 04/28/17 12:00 97.6 102 22 138/82 (100) 92 04/28/17 10:00 94 Result Diagram: 04/26/17 0326 04/26/17 0326 Imaging Last Impressions Chest X-Ray 04/26/17 0600 Signed Impressions: Service Date/Time: Wednesday, April 26, 2017 04:22 - CONCLUSION: No acute disease. Phu Farias MD Objective Remarks GENERAL: This is an obese, well-developed patient, in no apparent distress. CARDIOVASCULAR: irregularly irregular, tachycardic RESPIRATORY: Clear to auscultation. Breath sounds equal bilaterally. GASTROINTESTINAL: Abdomen soft, non-tender, nondistended. No guarding. MUSCULOSKELETAL: Extremities without clubbing, cyanosis, or edema. No joint tenderness, effusion, or edema noted. No calf tenderness. Negative Homans sign bilaterally. NEUROLOGICAL: Awake and alert. No focal deficits. Motor and sensory grossly within normal limits. Five out of 5 muscle strength in all muscle groups. Normal speech. Procedures none A/P Problem List: (1) Anticholinergic drug overdose ICD Codes: T44.3X1A - Poisoning by other parasympatholytics [anticholinergics and antimuscarinics] and spasmolytics, accidental (unintentional), initial encounter Status: Acute Plan: - Pt is a 36 y/o morbidly obese male with persistent atrial fibrillation who was brought in by ambulance from home on 04/25 after being found in his room altered with an empty bottle of diphenhydramine with a receipt that shows it was purchased that same day. The bottle was for a 48 tablets of diphenhydramine 25 mg pills. Patient also had an empty bottle of vodka in the room as well as alcohol level was 271 at admission. - He was tachycardic upon admission and appeared to be hallucinating. - Pt was admitted to ICU overnight on Precedex and Cardizem drip - It was felt that his altered mental status was due to Benadryl overdose - Poison control center notified by ED and pt was recommended supportive care only - Psych also following patient recommends inpatient admission once he is medically stable - transfer to step down once bed available - if patient remains stable plan to DC to inpatient psych once HR stable - Pt will likely need to remain on the medical service for the next 2-3 days (2) Atrial fibrillation with rapid ventricular response ICD Codes: I48.91 - Unspecified atrial fibrillation Status: Chronic Plan: - comgmt with Dr. Martin - Pt with hx of persistent atrial fibrillation - He is not compliant with medications or followup - His last 2D echo in 06/2015 noted EF 55-60% and mildly dilated LA - Pt likely has underlying undiagnosed EMERSON - Case d/w Dr. Martin (04/28) - increased Cardizem to 260mg BID - increase metoprolol to 100mg BID - continue digoxin - observe clinical response over the weekend & discuss case further with Dr. Martin on 05/01/17 - Pt may require ablation would require anticoagulation beforehand - supportive care - DVT prophylaxis with lovenox (3) Alcohol intoxication ICD Codes: F10.929 - Alcohol use, unspecified with intoxication, unspecified Status: Acute Plan: - Pt with hx of regular alcohol use - EtOH withdrawal precautions - Pt was initially on Precedex which has been weaned - Patient currently on Librium 10 mg 3 times a day, decrease to BID - prn ativan - MVI, thiamine, and folate - Pt will need f/u with [facility] mental health for etoh cessation program after discharge and AA (4) GERD (gastroesophageal reflux disease) ICD Codes: K21.9 - Gastro-esophageal reflux disease without esophagitis Status: Chronic Plan: - PPI - Pepcid (5) Obesity ICD Codes: E66.9 - Obesity, unspecified Status: Chronic Plan: - Following discharge pt will need f/u with a PCP and field care manager to help with weight management - Pt will need outpt w/u for EMERSON Problem Qualifiers (1) Anticholinergic drug overdose: Qualified Codes: T44.3X2A - Poisoning by other parasympatholytics [ anticholinergics and antimuscarinics] and spasmolytics, intentional self-harm, initial encounter (2) Alcohol intoxication: Qualified Codes: F10.921 - Alcohol use, unspecified with intoxication delirium Remigio Batres DO Apr 29, 2017 09:45
[2017-04-29] MEDS: METOPROLOL TARTRATE 100 MG TAB PO SCH ×2 (12:42→22:06)
[2017-04-29] MEDS: DILTIAZEM-CD 240 MG CAP ER PO SCH ×2 (12:42→22:14)
[2017-04-29] MEDS ORDERED: DILTIAZEM-CD 240 MG CAP ER PO SCH (20:00)
[2017-04-29] MEDS ORDERED: METOPROLOL TARTRATE 100 MG TAB PO SCH (21:00)
[2017-04-30] VITALS (8 sets, daily range): BP systolic 111–152; BP diastolic 57–94; PULSE 53–98; RESP 18–20; TEMP 97.6–98.4; O2SAT 95–97
[2017-04-30] MEDS: CHLORHEXIDINE GLUCONATE 2 % 1 PACK (2 CLOTHS) TOP SCH (04:00)
[2017-04-30] MEDS: FAMOTIDINE 20 MG/2 ML VIAL IV PUSH SCH ×2 (09:15→21:25)
[2017-04-30] MEDS: ASPIRIN EC 325 MG TABEC PO SCH (09:16)
[2017-04-30] MEDS: DIGOXIN 0.25 MG TAB PO SCH (09:16)
[2017-04-30] MEDS: METOPROLOL TARTRATE 100 MG TAB PO SCH ×2 (09:16→21:24)
[2017-04-30] MEDS: FOLIC ACID 1 MG TAB PO SCH (09:16)
[2017-04-30] MEDS: MULTIVITAMINS/MINERALS THERAPEUTIC TAB PO SCH (09:17)
[2017-04-30] MEDS: THIAMINE HCL 100 MG TAB PO SCH (09:17)
[2017-04-30] MEDS: DOCUSATE SODIUM 50 MG/SENNA 8.6 MG TAB PO SCH ×2 (09:17→21:00)
[2017-04-30] MEDS: ENOXAPARIN SODIUM 100 MG/ML SYRINGE SQ SCH (09:19)
[2017-04-30] MEDS: DILTIAZEM-CD 240 MG CAP ER PO SCH ×2 (09:19→21:25)
[2017-04-30] MEDS: SODIUM CHLORIDE 0.9% FLUSH 10 ML FLUSH IV FLUSH SCH ×2 (09:19→21:25)
[2017-04-30] MEDS: FLUoxetine HCL 10 MG CAP PO SCH (11:41)
--- NOTE | 2017-04-30 14:40 | HHI.PR ---
Subjective Remarks Patient HR much improved- patient reports he feels much better and is no longer having palpitations Objective Vitals Vital Signs Date Time Temp Pulse Resp B/P (MAP) Pulse Ox O2 Delivery O2 Flow Rate FiO2 04/30/17 12:13 95 Room Air 04/30/17 12:04 98.2 53 18 152/94 (113) 96 04/30/17 08:04 98.2 73 18 133/91 (105) 95 04/30/17 04:00 79 04/30/17 04:00 Room Air 04/30/17 04:00 98.1 75 18 111/57 (75) 97 04/30/17 00:00 81 04/30/17 00:00 Room Air 04/30/17 00:00 97.6 98 18 134/89 (104) 96 04/29/17 20:00 72 04/29/17 20:00 98.2 69 19 148/91 (110) 96 04/29/17 20:00 Room Air 04/29/17 17:00 75 04/29/17 16:04 98.3 77 20 148/88 (108) 94 04/29/17 16:00 94 Room Air 04/29/17 15:02 99 04/29/17 14:48 97.7 80 21 159/89 (112) 96 Result Diagram: 04/26/17 0326 04/26/17 0326 Other Results Laboratory Tests Test 04/28/17 06:15 04/30/17 07:07 Digoxin Level 0.4 NG/ML 0.6 NG/ML Imaging Last Impressions Chest X-Ray 04/26/17 0600 Signed Impressions: Service Date/Time: Wednesday, April 26, 2017 04:22 - CONCLUSION: No acute disease. Phu Farias MD Objective Remarks GENERAL: This is an obese, well-developed patient, in no apparent distress. CARDIOVASCULAR: irregularly irregular RESPIRATORY: Clear to auscultation. Breath sounds equal bilaterally. GASTROINTESTINAL: Abdomen soft, non-tender, nondistended. No guarding. MUSCULOSKELETAL: Extremities without clubbing, cyanosis, or edema. No joint tenderness, effusion, or edema noted. No calf tenderness. Negative Homans sign bilaterally. NEUROLOGICAL: Awake and alert. No focal deficits. Motor and sensory grossly within normal limits. Five out of 5 muscle strength in all muscle groups. Normal speech. Procedures none A/P Problem List: (1) Anticholinergic drug overdose ICD Codes: T44.3X1A - Poisoning by other parasympatholytics [anticholinergics and antimuscarinics] and spasmolytics, accidental (unintentional), initial encounter Status: Acute Plan: - Pt is a 36 y/o morbidly obese male with persistent atrial fibrillation who was brought in by ambulance from home on 04/25 after being found in his room altered with an empty bottle of diphenhydramine with a receipt that shows it was purchased that same day. The bottle was for a 48 tablets of diphenhydramine 25 mg pills. Patient also had an empty bottle of vodka in the room as well as alcohol level was 271 at admission. - He was tachycardic upon admission and appeared to be hallucinating. - Pt was admitted to ICU overnight on Precedex and Cardizem drip - It was felt that his altered mental status was due to Benadryl overdose - Poison control center notified by ED and pt was recommended supportive care only - Psych also following patient recommends inpatient admission once he is medically stable - transfer to step down once bed available - if patient remains stable plan to DC to inpatient psych once HR stable - Pt will likely need to remain on the medical service for the next 2-3 days (2) Atrial fibrillation with rapid ventricular response ICD Codes: I48.91 - Unspecified atrial fibrillation Status: Chronic Plan: - comgmt with Dr. Martin - Pt with hx of persistent atrial fibrillation - He is not compliant with medications or followup - His last 2D echo in 06/2015 noted EF 55-60% and mildly dilated LA - Pt likely has underlying undiagnosed EMERSON - Case d/w Dr. Martin (04/28) - increased Cardizem to 260mg BID per cardiology - increase metoprolol to 100mg BID per cardiology - digoxin will DC dig- HR improved - continue observe clinical response over the weekend & discuss case further with Dr. Martin on 05/01/17 - Pt may require ablation would require anticoagulation beforehand- per Dr. Pierson note patient not a candidate for anticoagulation given his noncompliance with medication, suicide attempt and low CHADs-VAS score - supportive care - DVT prophylaxis with lovenox (3) Alcohol intoxication ICD Codes: F10.929 - Alcohol use, unspecified with intoxication, unspecified Status: Acute Plan: - Pt with hx of regular alcohol use - EtOH withdrawal precautions - Pt was initially on Precedex which has been weaned - Patient currently on Librium 10 mg 3 times a day, decrease to BID - prn ativan - MVI, thiamine, and folate - Pt will need f/u with [facility] mental health for etoh cessation program after discharge and AA (4) GERD (gastroesophageal reflux disease) ICD Codes: K21.9 - Gastro-esophageal reflux disease without esophagitis Status: Chronic Plan: - PPI - Pepcid (5) Obesity ICD Codes: E66.9 - Obesity, unspecified Status: Chronic Plan: - Following discharge pt will need f/u with a PCP and storage receipt poster to help with weight management - Pt will need outpt w/u for EMERSON Problem Qualifiers (1) Anticholinergic drug overdose: Qualified Codes: T44.3X2A - Poisoning by other parasympatholytics [ anticholinergics and antimuscarinics] and spasmolytics, intentional self-harm, initial encounter (2) Alcohol intoxication: Qualified Codes: F10.921 - Alcohol use, unspecified with intoxication delirium Elmira Xie Apr 30, 2017 14:40
[2017-05-01] VITALS (7 sets, daily range): BP systolic 117–155; BP diastolic 56–89; PULSE 63–87; RESP 18–20; TEMP 97.3–98.3; O2SAT 93–96
[2017-05-01] MEDS: CHLORHEXIDINE GLUCONATE 2 % 1 PACK (2 CLOTHS) TOP SCH (04:00)
[2017-05-01] MEDS: FLUoxetine HCL 10 MG CAP PO SCH (08:36)
[2017-05-01] MEDS: ASPIRIN EC 325 MG TABEC PO SCH (08:36)
[2017-05-01] MEDS: MULTIVITAMINS/MINERALS THERAPEUTIC TAB PO SCH (08:36)
[2017-05-01] MEDS: FOLIC ACID 1 MG TAB PO SCH (08:36)
[2017-05-01] MEDS: THIAMINE HCL 100 MG TAB PO SCH (08:36)
[2017-05-01] MEDS: DOCUSATE SODIUM 50 MG/SENNA 8.6 MG TAB PO SCH ×2 (08:36→20:10)
[2017-05-01] MEDS: METOPROLOL TARTRATE 100 MG TAB PO SCH ×2 (08:37→20:10)
[2017-05-01] MEDS: ENOXAPARIN SODIUM 100 MG/ML SYRINGE SQ SCH (08:37)
[2017-05-01] MEDS: SODIUM CHLORIDE 0.9% FLUSH 10 ML FLUSH IV FLUSH SCH ×2 (08:37→20:10)
[2017-05-01] MEDS: FAMOTIDINE 20 MG/2 ML VIAL IV PUSH SCH (08:37)
[2017-05-01] MEDS: DILTIAZEM-CD 240 MG CAP ER PO SCH ×2 (08:47→20:10)
--- NOTE | 2017-05-01 09:15 | HHI.PR ---
Subjective Remarks no complaints. maybe a few palpitations overnight. Objective Vitals heart irreg lung cta abd s/nt ext no edema Vital Signs Date Time Temp Pulse Resp B/P (MAP) Pulse Ox O2 Delivery O2 Flow Rate FiO2 05/01/17 04:00 Room Air 05/01/17 04:00 97.8 73 20 129/74 (92) 96 05/01/17 04:00 69 05/01/17 00:00 Room Air 05/01/17 00:00 97.7 75 20 125/89 (101) 96 05/01/17 00:00 80 04/30/17 20:00 97.8 73 20 133/85 (101) 95 04/30/17 20:00 Room Air 04/30/17 20:00 86 04/30/17 16:04 98.4 83 18 126/75 (92) 95 04/30/17 16:00 58 04/30/17 15:19 80 04/30/17 12:13 95 Room Air 04/30/17 12:04 98.2 53 18 152/94 (113) 96 Imaging Last Impressions Chest X-Ray 04/26/17 0600 Signed Impressions: Service Date/Time: Wednesday, April 26, 2017 04:22 - CONCLUSION: No acute disease. Phu Farias MD Procedures none A/P Problem List: (1) Anticholinergic drug overdose ICD Codes: T44.3X1A - Poisoning by other parasympatholytics [anticholinergics and antimuscarinics] and spasmolytics, accidental (unintentional), initial encounter Status: Acute Plan: - Pt is a 36 y/o morbidly obese male with persistent atrial fibrillation who was brought in by ambulance from home on 04/25 after being found in his room altered with an empty bottle of diphenhydramine with a receipt that shows it was purchased that same day. The bottle was for a 48 tablets of diphenhydramine 25 mg pills. Patient also had an empty bottle of vodka in the room as well as alcohol level was 271 at admission. - He was tachycardic upon admission and appeared to be hallucinating. - Pt was admitted to ICU overnight on Precedex and Cardizem drip - It was felt that his altered mental status was due to Benadryl overdose - Poison control center notified by ED and pt was recommended supportive care only - Psych also following patient recommends inpatient admission once he is medically stable - if patient remains stable plan to DC to inpatient psych once HR stable (2) Atrial fibrillation with rapid ventricular response ICD Codes: I48.91 - Unspecified atrial fibrillation Status: Acute Plan: - comgmt with Dr. Martin - Pt with hx of persistent atrial fibrillation - He is not compliant with medications or followup - His last 2D echo in 06/2015 noted EF 55-60% and mildly dilated LA - Pt likely has underlying undiagnosed EMERSON - Case d/w Dr. Martin (04/28) - increased Cardizem to 240mg BID per cardiology - increased metoprolol to 100mg BID per cardiology - digoxin held on 05/01 for baljeet and HR 50s - Pt may require ablation would require anticoagulation beforehand- per Dr. Pierson note patient not a candidate for anticoagulation given his noncompliance with medication, suicide attempt and low CHADs-VAS score - supportive care - DVT prophylaxis with lovenox -oob and PT ambulation today to assess HR control..... (3) Alcohol intoxication ICD Codes: F10.929 - Alcohol use, unspecified with intoxication, unspecified Status: Acute Plan: - Pt with hx of regular alcohol use - EtOH withdrawal precautions - Pt was initially on Precedex which has been weaned - Patient currently on Librium ..continue to wean. - prn ativan - MVI, thiamine, and folate - Pt will need f/u with [facility] mental health for etoh cessation program after discharge and AA (4) GERD (gastroesophageal reflux disease) ICD Codes: K21.9 - Gastro-esophageal reflux disease without esophagitis Status: Chronic Plan: - PPI - Pepcid (5) Obesity ICD Codes: E66.9 - Obesity, unspecified Status: Chronic Plan: - Following discharge pt will need f/u with a PCP and sound editor to help with weight management - Pt will need outpt w/u for EMERSON Problem Qualifiers (1) Anticholinergic drug overdose: Qualified Codes: T44.3X2A - Poisoning by other parasympatholytics [ anticholinergics and antimuscarinics] and spasmolytics, intentional self-harm, initial encounter (2) Alcohol intoxication: Qualified Codes: F10.921 - Alcohol use, unspecified with intoxication delirium Yung Tomlin MD May 01, 2017 09:15
[2017-05-02] VITALS: BP 128/75; PULSE 77; RESP 18; TEMP 98.7; O2SAT 95
[2017-05-02 00:20] VITALS: PULSE 76
[2017-05-02] MEDS: CHLORHEXIDINE GLUCONATE 2 % 1 PACK (2 CLOTHS) TOP SCH (03:04)
[2017-05-02 03:49] VITALS: PULSE 67
[2017-05-02 04:00] VITALS: BP 123/76; PULSE 65; RESP 18; TEMP 97.4; O2SAT 96
[2017-05-02 08:00] VITALS: BP 126/79; PULSE 76; PULSE 88; RESP 20; TEMP 98.3; O2SAT 95
--- NOTE | 2017-05-02 08:40 | HHI.PR ---
Subjective Remarks no complaints. hoping psychiatrist will release him to home. Objective Vitals heart irreg lung cta abd s/nt ext no edema Vital Signs Date Time Temp Pulse Resp B/P (MAP) Pulse Ox O2 Delivery O2 Flow Rate FiO2 05/02/17 04:00 97.4 65 18 123/76 (92) 96 05/02/17 04:00 Room Air 05/02/17 03:49 67 05/02/17 00:20 76 05/02/17 00:00 98.7 77 18 128/75 (92) 95 05/02/17 00:00 Room Air 05/01/17 20:10 Room Air 05/01/17 20:00 98.3 74 18 117/56 (76) 93 05/01/17 19:57 87 05/01/17 16:00 72 05/01/17 16:00 72 05/01/17 16:00 97.3 63 18 129/73 (91) 94 05/01/17 12:00 97.9 77 18 155/85 (108) 95 05/01/17 12:00 81 Imaging Last Impressions Chest X-Ray 04/26/17 0600 Signed Impressions: Service Date/Time: Wednesday, April 26, 2017 04:22 - CONCLUSION: No acute disease. Phu Farias MD Procedures none A/P Problem List: (1) Anticholinergic drug overdose ICD Codes: T44.3X1A - Poisoning by other parasympatholytics [anticholinergics and antimuscarinics] and spasmolytics, accidental (unintentional), initial encounter Status: Acute Plan: - Pt is a 36 y/o morbidly obese male with persistent atrial fibrillation who was brought in by ambulance from home on 04/25 after being found in his room altered with an empty bottle of diphenhydramine with a receipt that shows it was purchased that same day. The bottle was for a 48 tablets of diphenhydramine 25 mg pills. Patient also had an empty bottle of vodka in the room as well as alcohol level was 271 at admission. - He was tachycardic upon admission and appeared to be hallucinating. - Pt was admitted to ICU overnight on Precedex and Cardizem drip - It was felt that his altered mental status was due to Benadryl overdose - Poison control center notified by ED and pt was recommended supportive care only - Psych also following patient recommends inpatient admission once he is medically stable - d/c today to psych unit. (2) Atrial fibrillation with rapid ventricular response ICD Codes: I48.91 - Unspecified atrial fibrillation Status: Acute Plan: - comgmt with Dr. Martin - Pt with hx of persistent atrial fibrillation - He is not compliant with medications or followup - His last 2D echo in 06/2015 noted EF 55-60% and mildly dilated LA - Pt likely has underlying undiagnosed EMERSON - Case d/w Dr. Mratin (04/28) - increased Cardizem to 240mg BID per cardiology - increased metoprolol to 100mg BID per cardiology - digoxin held on 05/01 for baljeet and HR 50s - Pt may require ablation.. would require anticoagulation beforehand- per Dr. Pierson note patient not a candidate for anticoagulation given his noncompliance with medication, suicide attempt and low CHADs-VAS score - supportive care - DVT prophylaxis -oob and PT ambulation 05/01..hr controlled cont current meds. d/c to psych unit. f/u cardiology. (3) Alcohol intoxication ICD Codes: F10.929 - Alcohol use, unspecified with intoxication, unspecified Status: Acute Plan: - Pt with hx of regular alcohol use - EtOH withdrawal precautions - Pt was initially on Precedex which has been weaned - Patient currently on Librium ..continue to wean. - prn ativan - MVI, thiamine, and folate - Pt will need f/u with [facility] mental health for etoh cessation program after discharge and AA (4) GERD (gastroesophageal reflux disease) ICD Codes: K21.9 - Gastro-esophageal reflux disease without esophagitis Status: Chronic Plan: - PPI - Pepcid (5) Obesity ICD Codes: E66.9 - Obesity, unspecified Status: Chronic Plan: - Following discharge pt will need f/u with a PCP and automobile parker to help with weight management - Pt will need outpt w/u for EMERSON Problem Qualifiers (1) Anticholinergic drug overdose: Qualified Codes: T44.3X2A - Poisoning by other parasympatholytics [ anticholinergics and antimuscarinics] and spasmolytics, intentional self-harm, initial encounter (2) Alcohol intoxication: Qualified Codes: F10.921 - Alcohol use, unspecified with intoxication delirium Yung Tomlin MD May 02, 2017 08:40
[2017-05-02] MEDS ORDERED: DILT240C44 PO (08:43)
[2017-05-02] MEDS ORDERED: METO-338 PO (08:43)
--- NOTE | 2017-05-02 08:45 | HHI.DS ---
Discharge Summary Admission Date Apr 25, 2017 at 01:51 Discharge Date: May 02, 2017 Admitting Diagnosis anticholinergic toxicity, A. fib with RVR, alcohol intoxication (1) Anticholinergic drug overdose Diagnosis: Principal ICD Codes: T44.3X1A - Poisoning by other parasympatholytics [anticholinergics and antimuscarinics] and spasmolytics, accidental (unintentional), initial encounter Status: Acute (2) Atrial fibrillation with rapid ventricular response Diagnosis: Principal ICD Codes: I48.91 - Unspecified atrial fibrillation Status: Acute (3) Alcohol intoxication Diagnosis: Principal ICD Codes: F10.929 - Alcohol use, unspecified with intoxication, unspecified Status: Acute (4) GERD (gastroesophageal reflux disease) Diagnosis: Secondary ICD Codes: K21.9 - Gastro-esophageal reflux disease without esophagitis Status: Chronic (5) Obesity Diagnosis: Secondary ICD Codes: E66.9 - Obesity, unspecified Status: Chronic Procedures none Brief History This a morbidly obese 36-year-old male patient with a past medical history which includes persistent atrial fibrillation since age 22, GERD, morbid obesity , EtOH abuse and depression. Patient was found by his sister on 04/25/2017 he had altered mental status and empty bottle of diphenhydramine 25 mg tablets total of 48 tablets were missing. Patient also found with an empty bottle of vodka alcohol level 271 on admission. The time of admission patient was tachycardiac atrial fibrillation RVR and appear to be hallucinating. Patient has been treated in the intensive care unit for the past 2 days seems to have stabilized and we've been consulted to assume medical care has audience development manager and signed off. Patient was initially placed on Cardizem drip which has been titrated off and is currently on Cardizem 60 mg by mouth every 6 hours, metoprolol 50 mg every 12 hours and digoxin 0.25 mg daily. Heart rate in the high 90s blood pressure 140s over 70s. Patient is also being followed by psychiatry who recommended inpatient psychiatric treatment once he is medically stable. Cardiology has been consulted patient seen by Dr. Salcedo who evaluated patient recommends. Cardizem, titrate metoprolol to control heart rate as blood pressure allows and digoxin. Cardiology also states that digoxin may be able to be discontinued prior to discharge. Regarding anticoagulation due to patient 's poor social habits and low CHADS-VASc score recommend aspirin 325 mg daily. Significant Findings Laboratory Tests Test 04/30/17 07:07 05/01/17 05:30 Digoxin Level 0.6 NG/ML (0.8-2.0) 0.6 NG/ML (0.8-2.0) Hospital Course (1) Anticholinergic drug overdose - Pt is a 36 y/o morbidly obese male with persistent atrial fibrillation who was brought in by ambulance from home on 04/25 after being found in his room altered with an empty bottle of diphenhydramine with a receipt that shows it was purchased that same day. The bottle was for a 48 tablets of diphenhydramine 25 mg pills. Patient also had an empty bottle of vodka in the room as well as alcohol level was 271 at admission. - He was tachycardic upon admission and appeared to be hallucinating. - Pt was admitted to ICU overnight on Precedex and Cardizem drip - It was felt that his altered mental status was due to Benadryl overdose - Poison control center notified by ED and pt was recommended supportive care only - Psych also following patient recommends inpatient admission once he is medically stable - d/c today to psych unit. (2) Atrial fibrillation with rapid ventricular response ICD Codes: I48.91 - Unspecified atrial fibrillation Status: Acute Plan: - comgmt with Dr. Martin - Pt with hx of persistent atrial fibrillation - He is not compliant with medications or followup - His last 2D echo in 06/2015 noted EF 55-60% and mildly dilated LA - Pt likely has underlying undiagnosed EMERSON - Case d/w Dr. Martin (04/28) - increased Cardizem to 240mg BID per cardiology - increased metoprolol to 100mg BID per cardiology - digoxin held on 05/01 for baljeet and HR 50s - Pt may require ablation.. would require anticoagulation beforehand- per Dr. Pierson note patient not a candidate for anticoagulation given his noncompliance with medication, suicide attempt and low CHADs-VAS score - supportive care - DVT prophylaxis -oob and PT ambulation 05/01..hr controlled cont current meds. d/c to psych unit. f/u cardiology. (3) Alcohol intoxication ICD Codes: F10.929 - Alcohol use, unspecified with intoxication, unspecified Status: Acute Plan: - Pt with hx of regular alcohol use - EtOH withdrawal precautions - Pt was initially on Precedex which has been weaned - Patient currently on Librium ..continue to wean. - prn ativan - MVI, thiamine, and folate - Pt will need f/u with [facility] mental health for etoh cessation program after discharge and AA (4) GERD (gastroesophageal reflux disease) ICD Codes: K21.9 - Gastro-esophageal reflux disease without esophagitis Status: Chronic Plan: - PPI - Pepcid (5) Obesity ICD Codes: E66.9 - Obesity, unspecified Status: Chronic Plan: - Following discharge pt will need f/u with a PCP and data warehouse administrator to help with weight management - Pt will need outpt w/u for EMERSON Pt Condition on Discharge: Stable Discharge Disposition: Disc to Psych Care Fac Discharge Instructions DIET: Follow Instructions for: Weight Management Activities you can perform: Regular-No Restrictions Follow up Referrals: Cardiology - [address] [facility]o [facility] - 2-3 Days with [facility] PCP Follow-up - [address] Duke New Medications: Famotidine (Pepcid) 20 Mg Tab 20 MG PO BID for stomach protection, #60 TAB [address] (Aspirin EC) 325 Mg Tabdr 325 MG PO DAILY for Blood Clot Prevention, #30 TAB 0 Refills Diltiazem CD 24 HR (Diltiazem CD 24 HR) 240 Mg Caper 240 MG PO BID@0800,2000 for afib, #60 CAP 1 Refill Fluoxetine (Pmdd) (Fluoxetine (Pmdd)) 10 Mg Cap 10 MG PO DAILY for Depression Control, #30 CAP 0 Refills Metoprolol Tartrate (Lopressor) 100 Mg Tab 100 MG PO Q12HR for afib, #60 TAB 1 Refill Yung Tomlin MD May 02, 2017 08:45
[2017-05-02] MEDS: THIAMINE HCL 100 MG TAB PO SCH (09:51)
[2017-05-02] MEDS: DILTIAZEM-CD 240 MG CAP ER PO SCH (09:51)
[2017-05-02] MEDS: FLUoxetine HCL 10 MG CAP PO SCH (09:51)
[2017-05-02] MEDS: ASPIRIN EC 325 MG TABEC PO SCH (09:51)
[2017-05-02] MEDS: ENOXAPARIN SODIUM 100 MG/ML SYRINGE SQ SCH (09:51)
[2017-05-02] MEDS: METOPROLOL TARTRATE 100 MG TAB PO SCH (09:51)
[2017-05-02] MEDS: DOCUSATE SODIUM 50 MG/SENNA 8.6 MG TAB PO SCH (09:52)
[2017-05-02] MEDS: SODIUM CHLORIDE 0.9% FLUSH 10 ML FLUSH IV FLUSH SCH (09:52)
--- NOTE | 2017-05-02 11:38 | HHI.PYPN ---
Subjective Remarks Patient was seen today for psychiatric reevaluation, he was found having a conversation with one-to-one sitter, he was calm, cooperative, pleasant. The patient says that he has been investing a lot of time in reflection about his recent suicidal attempt. He says that he is happy that he felt to kill himself. He has been looking forward to start this new opportunity, "far from alcohol, and revising well the interpersonal relationship with people that are not good for me", patient reports some moments of sadness, but he denies helplessness, hopelessness, worthlessness, he does report changes in appetite and poor sleep at night with "some intrusive thoughts", but he denies suicidal and homicidal ideation, visual and auditory hallucinations. No paranoia, no delusions, no disorganized behavior or agitation present. Patient is oriented 3, no attention deficit, no delirium present. Review of Systems Psychiatric: COMPLAINS OF: Depression Mental Status Examination Appearance: Disheveled, Other (obese, age appearing) Consciousness: Alert Orientation: x4 Motor Activity: Normal gait Speech: Unremarkable Language: Adequate Fund of Knowledge: Adequate Attention and Concentration: Adequate Memory: Unremarkable Mood: Sad Affect: Sad Thought Process & Associations: Intact Thought Content: Appropriate Hallucination Type: None Delusion Type: None Suicidal Ideation: No Suicidal Plan: No Suicidal Intention: No Homicidal Ideation: No Homicidal Plan: No Homicidal Intention: No Insight: Fair Judgment: Impulsive Results Vitals/IOs Vital Signs Date Time Temp Pulse Resp B/P (MAP) Pulse Ox O2 Delivery O2 Flow Rate FiO2 05/02/17 08:00 98.3 76 20 126/79 (95) 95 05/02/17 07:15 Room Air 04/28/17 08:35 21 Assessment & Plan Problem List: (1) Adjustment disorder with depressed mood ICD Codes: F43.21 - Adjustment disorder with depressed mood Assessment & Plan: We'll start trazodone 100 mg at bedtime for depression and also to help with sleep. Brief supportive psychotherapy provided. Patient will be transferred to psychiatry to continue stabilization and to restart a safe discharge planning. Assessment & Plan Estimated LOS: days Justification for Cont. Inpt. She has recently tried to commit suicide by overdosing with anticholinergic drugs after argument with his . He needs psychiatric hospitalization for stabilization and safety Ramón Bhatti MD May 02, 2017 11:38
[2017-05-02 12:00] VITALS: PULSE 95
[2017-05-02] MEDS ORDERED: traZODone HCL 100 MG TAB PO SCH (21:00)
== END 2017-05-02 15:31 | DRG 918 ==
LOC: NEPE 22:43 → NEDA 04-25 01:51 → HIME 04-25 04:50 → N04B 04-29 14:10
PROVIDERS: ADMIT Hospitalist; ATTEND Hospitalist
DX: T45.0X2A Poisoning by antiallergic and antiemetic drugs, intentional self-harm, initial encounter (principal); I48.1 Persistent atrial fibrillation; I10 Essential (primary) hypertension; I48.0 Paroxysmal atrial fibrillation; E86.0 Dehydration; Z68.42 Body mass index [BMI] 45.0-49.9, adult; R44.3 Hallucinations, unspecified; E66.01 Morbid (severe) obesity due to excess calories; K21.9 Gastro-esophageal reflux disease without esophagitis; R00.0 Tachycardia, unspecified; I48.2 Chronic atrial fibrillation; F10.129 Alcohol abuse with intoxication, unspecified; F43.21 Adjustment disorder with depressed mood; Y90.8 Blood alcohol level of 240 mg/100 ml or more; Y92.009 Unspecified place in unspecified non-institutional (private) residence as the place of occurrence of the external cause; Z56.0 Unemployment, unspecified; Z63.0 Problems in relationship with spouse or partner; Z87.891 Personal history of nicotine dependence; Z91.14 Patient's other noncompliance with medication regimen
CPT/HCPCS: 36600; 71010; 76937; 80053; 80162; 80307; 82550; 82805; 82948; 83735; 84100; 84443; 85025; 85610; 85730; 93005; 94002; 96361; 96374; 96375; J1160; J1644; J1650; J2060; J3475; J7030

== ENCOUNTER 2017-05-02 15:22 | Inpatient (IN) | payer OTHER ==
[~2017-05-02 15:22] MED LIST changes: +ASPI325T33 PO; +DILT240C44 PO; +FAMO1TAB37 PO; +FLUO10CA4 PO; +METO-338 PO
[2017-05-02] MEDS ORDERED: ALUMINUM/MAGNESIUM/SIMETH 30 ML CUP PO PRN (16:15)
[2017-05-02] MEDS ORDERED: MAGNESIUM HYDROXIDE SUSP 30 ML CUP PO PRN (16:15)
[2017-05-02] MEDS ORDERED: ACETAMINOPHEN 325 MG TAB PO PRN (16:15)
[2017-05-02] MEDS: REMOVE OLD PATCH T-DERMAL SCH (16:23)
[2017-05-02] MEDS: NICOTINE 21 MG/24 HR PATCH T-DERMAL SCH (17:00)
[2017-05-02 17:08] VITALS: BP 126/79; PULSE 88; RESP 20; TEMP 98.3; O2SAT 95
[2017-05-02 18:00] VITALS: BP 156/77; PULSE 66; RESP 17; TEMP 97.3; O2SAT 95
[2017-05-02] MEDS ORDERED: traZODone HCL 50 MG TAB PO SCH (21:00)
[2017-05-03 06:06] VITALS: BP 121/70; PULSE 57; RESP 16; TEMP 97.5; O2SAT 95
[2017-05-03 08:07] LABS: ANION GAP 8 MEQ/L (5-15); BICARBONATE 26.9 MEQ/L (21.0-32.0); BLOOD UREA NITROGEN 14 MG/DL (7-18); CHLORIDE 107 MEQ/L (98-107); GLOMERULAR FILTRATION RATE 86 ML/MIN (>89); POTASSIUM 3.9 MEQ/L (3.5-5.1); SODIUM (NA) 142 MEQ/L (136-145)
[2017-05-03 08:11] LABS: HDL CHOLESTEROL 33.2 MG/DL (40.0-60.0); LDL CHOLESTEROL 159 MG/DL (0-99)
[2017-05-03] MEDS: REMOVE OLD PATCH T-DERMAL SCH (09:00)
[2017-05-03] MEDS: NICOTINE 21 MG/24 HR PATCH T-DERMAL SCH (09:00)
[2017-05-03] MEDS ORDERED: INFLUENZA VIRUS VACCINE (QUADRIVALENT) 0.5 ML SYR IM ONE (10:00)
[2017-05-03] MEDS ORDERED: PNEUMOCOCCAL POLYVALENT INJ 25 MCG/0.5 ML SYR IM ONE (10:00)
--- NOTE | 2017-05-03 13:59 | HHI.HP ---
Provisional Diagnosis Admission Date May 02, 2017 at 15:45 Carlock I. Adjustment disorder with depressed mood f 43.21, alcohol abuse affect 10.10 Certification of Person's Competence To Provide Express and Informed Consent I have personally examined Matheus Lion , a person being served at [facility] on, May 03, 2017 13:46. Express and informed consent means consent voluntarily given in writing, by a competent person, after sufficient explanation and disclosure of the subject matter involved to enable the person to make a knowing and willful decision without any element of force, fraud, deceit, duress, or other form of constraint or coercion. This person is 18 years of age or older, is not now known to be incompetent to consent to treatment with a guardian advocate, and does not have a health care surrogate or proxy currently making medical treatment decisions. I have found this person to be one of the following: [xxx] Competent to provide express and informed consent, as defined above, for voluntary admission to this facility and is competent to provide express and informed consent for treatment. He/she has the consistent capacity to make well reasoned, willful, and knowing decisions concerning his or her medical or mental health treatment. The person fully and consistently understands the purpose of the admission for examination/placement and is fully capable of personally exercising all rights assured [place] Incompetent to provide express and informed consent to voluntary admission, and this is incompetent to provide express and informed consent to treatment. The person must be transferred to involuntary status and a petition for a guardian advocate filed with the Circuit Court. [] Refusing to provide express and informed consent to voluntary admission but is competent to provide express and informed consent for treatment. The person must be discharged or transferred to involuntary status. Form shall be completed within 24 hours of a person's arrival at the receiving facility and filed in the clinical record of each person: 1. Admitted on a voluntary basis 2. Permitted to provide express and informed consent to his/her own treatment 3. Allowed to transfer from involuntary to voluntary status 4. Prior to permitting a person to consent to his or her own treatment after having been previously found incompetent to consent to treatment. History of Present Illness Capacity: Has Capacity HPI Patient is a 36-year-old white male initially comes to [facility] under [place] act on 04/24/17 with history of overdose on Benadryl the blood alcohol level of 237 and a negative toxicology screen. Patient was admitted to the hospital under visit [id number] for treatment of the anticholinergic overdose. Patient seen in consultation by Dr. Ashley. Most recently on 05/02. Recommended further outpatient assessment. Patient transferred here under the [place] act at the present time patient sitting quietly in his room, nurse Emmett present throughout session. Patient alert oriented obese white male calm cooperative fair eye contact. Stating eating does drink alcohol every day perhaps up to a pint of vodka or gin, whichever shaper. Denies blacking out passing out, denies detox or rehabilitation. Denies any legal issues related to drinking. Denies any other drug use. It appears this placement strain on his marriage has been for a number of years to lady who came into the marriage with 3 room children. They are all teenagers. It appears his drinking is cause somewhat of a stress on their relationship. Patient states usually takes 2 Benadryl at bedtime to help him sleep. He also acknowledges he snores the point where his sometimes sleeps in another room. We did suggest a sleep study. Mini-Mental patient denies prior psychiatric contact hospitalization psychotropic medication. He denies any suicidal ideation intent or plan with this. Denies any prior suicidal attempts. He has a steady job that is somewhat demanding. He denies any physical or sexual abuse as a child. Says is his stepfather was a drinker. At the present time patient does not meet [place] criteria. I'll lift the Corado act patient does wish to be discharged. He does not meet criteria for inpatient psychiatric stay. Thus will auditory discharged from self who be no Rx by me. There are medical medications Ativan ordered with the medical consult that includes diltiazem time fluoxetine Pepcid and aspirin. Will refer patient to AA, refer patient to [facility] for continue assessment related to his use of antidepressant. Also referred there for voluntary outpatient substance abuse assessment. Absolute sobriety. Review of Systems Constitutional: DENIES: Diaphoretic episodes, Fatigue, Fever, Weight gain, Weight loss, Chills, Dizziness, Change in appetite, Night Sweats Endocrine: DENIES: Heat/cold intolerance, Polydipsia, Polyuria, Polyphagia Eyes: DENIES: Blurred vision, Diplopia, Eye inflammation, Eye pain, Vision loss , Photosensitivity, Double Vision Ears, nose, mouth, throat: DENIES: Tinnitus, Hearing loss, Vertigo, Nasal discharge, Oral lesions, Throat pain, Hoarseness, Ear Pain, Running Nose, Epistaxis, Sinus Pain, Toothache, Odynophagia Respiratory: COMPLAINS OF: Apneas (sleep), Snoring, DENIES: Cough, Wheezing, Hemoptysis, Sputum production, Shortness of breath Cardiovascular: DENIES: Chest pain, Palpitations, Syncope, Dyspnea on Exertion , PND, Lower Extremity Edema, Orthopnea, Claudication Gastrointestinal: DENIES: Abdominal pain, Black stools, Bloody stools, Constipation, Diarrhea, Nausea, Vomiting, Difficulty Swallowing, Anorexia Genitourinary: DENIES: Sexual dysfunction, Urinary frequency, Urinary incontinence, Urgency, Hematuria, Dysuria, Nocturia, Penile Discharge, Testicular Pain, Testicular Swelling Musculoskeletal: DENIES: Joint pain, Muscle aches, Stiffness, Joint Swelling, Back pain, Neck pain Integumentary: DENIES: Abnormal pigmentation, Nail changes, Pruritus, Rash Hematologic/lymphatic: DENIES: Bruising, Lymphadenopathy Immunologic/allergic: DENIES: Eczema, Urticaria Neurologic: DENIES: Abnormal gait, Headache, Localized weakness, Paresthesias, Seizures, Speech Problems, Tremor, Poor Balance Psychiatric: COMPLAINS OF: Depression (denies at this time), DENIES: Anxiety, Confusion, Mood changes, Hallucinations, Agitation, Suicidal Ideation, Homicidal Ideation, Delusions Past Psych History Psychological trauma history Denies Violence risk - others (6 mos) Denies Violence risk - self (6 mos) Denies Substance Abuse History Drugs/Alcohol past 12 months Alcohol abuser with daily drinking Past Family Social History Coded Allergies: No Known Allergies (Verified , 06/26/15) Active Scripts Diltiazem CD 24 HR (Diltiazem CD 24 HR) 240 Mg Caper, 240 MG PO BID@0800,2000 for afib, #60 CAP 1 Refill Prov:Yung Tomlin MD 05/02/17 Metoprolol Tartrate (Lopressor) 100 Mg Tab, 100 MG PO Q12HR for afib, #60 TAB 1 Refill Prov:Yung Tomlin MD 05/02/17 Famotidine (Pepcid) 20 Mg Tab, 20 MG PO BID for stomach protection, #60 TAB 0 Refills Prov:Stackpole,Elmira PA 04/28/17 Fluoxetine (Pmdd) (Fluoxetine (Pmdd)) 10 Mg Cap, 10 MG PO DAILY for Depression Control, #30 CAP 0 Refills Prov:Elmira Xie 04/28/[address] (Aspirin EC) 325 Mg Tabdr, 325 MG PO DAILY for Blood Clot Prevention , #30 TAB 0 Refills Prov:Elmira Xie 04/28/17 Current Medications Medications (Trade) Dose Ordered Sig/Mariela Route Start Time Stop Time Status Last Admin (Tylenol) 650 mg Q4H PRN PO 05/02/17 16:15 (Milk Of Magnesia Liq) 30 ml DAILY PRN PO 05/02/17 16:15 (Mag-Al Plus Susp Liq) 30 ml Q6H PRN PO 05/02/17 16:15 (Habitrol 21 Mg Patch.24 Hr) 1 patch DAILY T-DERMAL 05/02/17 17:00 (Desyrel) 100 mg HS PO 05/02/17 21:00 05/02/17 21:59 Miscellaneous Information 1 DAILY T-DERMAL 05/02/17 16:23 Family Psych History Denies Social History Patient Natalie lives with and her 3 children Patient's Strengths (min. 2) Patient verbal irritable [facility] cooperative Physical Exam Is medically cleared through prior admission the [id number] this time patient sitting quietly in his room he is in no acute distress, he is in no respiratory distress. No complaints of abdominal pain. Patient of all 4 extremities without difficulty no abnormal motor movements noted Vital Signs Vital Signs Date Time Temp Pulse Resp B/P (MAP) Pulse Ox O2 Delivery O2 Flow Rate FiO2 05/03/17 06:06 97.5 57 16 121/70 (87) 95 Lab Results Test 05/03/17 07:15 Blood Urea Nitrogen 14 MG/DL Creatinine 0.98 MG/DL Random Glucose 91 MG/DL Calcium Level 9.2 MG/DL Sodium Level 142 MEQ/L Potassium Level 3.9 MEQ/L Chloride Level 107 MEQ/L Carbon Dioxide Level 26.9 MEQ/L Anion Gap 8 MEQ/L Estimat Glomerular Filtration Rate 86 ML/MIN Triglycerides Level 111 MG/DL Cholesterol Level 214 MG/DL LDL Cholesterol 159 MG/DL HDL Cholesterol 33.2 MG/DL Cholesterol/HDL Ratio 6.44 RATIO Mental Status Examination Appearance: Appropriate Consciousness: Alert Orientation: x4 Motor Activity: Normal gait Speech: Unremarkable Language: Adequate Fund of Knowledge: Adequate Attention and Concentration: Adequate Memory: Unremarkable Mood: Other (euthymic) Affect: Other (good range and intensity) Thought Process & Associations: Intact Thought Content: Appropriate Hallucination Type: None Delusion Type: None Suicidal Ideation: No Suicidal Plan: No Suicidal Intention: No Homicidal Ideation: No Homicidal Plan: No Homicidal Intention: No Insight: Adequate Judgment: Adequate Assessment & Plan Problem List: (1) Adjustment disorder with depressed mood ICD Codes: F43.21 - Adjustment disorder with depressed mood (2) ETOH abuse ICD Codes: F10.10 - Alcohol abuse, uncomplicated Status: Chronic Assessment & Plan Estimated LOS: days + patient does not meet criteria for inpatient psychiatric hospitalization will lift [facility] allow patient to be discharged to himself if her sister Bhanu [facility] since he has been prescribed Prozac on his medical admission. Referred to . Referred to [facility] for voluntary outpatient substance abuse assessment. Absolute sobriety Discharge Planning See above Request HC Surrog/Guard Advoc?: No Derrick Sherman MD May 03, 2017 13:59
--- NOTE | 2017-05-03 14:04 | HHI.DS ---
Psychiatry Discharge Summary Inpatient Psychiatric care?: Yes Advance Directive: Yes Reason Not Provided: Mental Health AdvanceDirective: No Health Care Proxy: No Admission Admission Date May 02, 2017 at 15:45 Admission Diagnosis: (1) Adjustment disorder with depressed mood ICD Code: F43.21 - Adjustment disorder with depressed mood (2) ETOH abuse ICD Code: F10.10 - Alcohol abuse, uncomplicated Brief History Patient is a 36-year-old white male initially comes to [facility] under [place] act on 04/24/17 with history of overdose on Benadryl the blood alcohol level of 237 and a negative toxicology screen. Patient was admitted to the hospital under visit [id number] for treatment of the anticholinergic overdose. Patient seen in consultation by Dr. Ashley. Most recently on 05/02. Recommended further outpatient assessment. Patient transferred here under the [place] act at the present time patient sitting quietly in his room, nurse Emmett present throughout session. Patient alert oriented obese white male calm cooperative fair eye contact. Stating eating does drink alcohol every day perhaps up to a pint of vodka or gin, whichever shaper. Denies blacking out passing out, denies detox or rehabilitation. Denies any legal issues related to drinking. Denies any other drug use. It appears this placement strain on his marriage has been for a number of years to lady who came into the marriage with 3 room children. They are all teenagers. It appears his drinking is cause somewhat of a stress on their relationship. Patient states usually takes 2 Benadryl at bedtime to help him sleep. He also acknowledges he snores the point where his sometimes sleeps in another room. We did suggest a sleep study. Mini-Mental patient denies prior psychiatric contact hospitalization psychotropic medication. He denies any suicidal ideation intent or plan with this. Denies any prior suicidal attempts. He has a steady job that is somewhat demanding. He denies any physical or sexual abuse as a child. Says is his stepfather was a drinker. At the present time patient does not meet [place] criteria. I'll lift the [place] act patient does wish to be discharged. He does not meet criteria for inpatient psychiatric stay. Thus will auditory discharged from self who be no Rx by me. There are medical medications Ativan ordered with the medical consult that includes diltiazem time fluoxetine Pepcid and aspirin. Will refer patient to [facility], refer patient to [facility] for continue assessment related to his use of antidepressant. Also referred there for voluntary outpatient substance abuse assessment. Absolute sobriety. Tobacco Use In Past 30 Days: No Tobacco Past 30 Days Alcohol Use: 4 or More Times Per Week Hospital Course Please see dictation April brief history. Patient does not meet criteria for involuntary psychiatric hospitalization. Patient to be discharged to himself. Continue medications as written with prior hospitalization, referred to [facility] for further assessment, referral Mr. [facility] outpatient voluntary substance abuse assessment. Referred to [facility]. Absolute sobriety Results Blood Pressure 121 / 70 Vital Signs Date Time Temp Pulse Resp B/P (MAP) Pulse Ox O2 Delivery O2 Flow Rate FiO2 05/03/17 06:06 97.5 57 16 121/70 (87) 95 Laboratory Tests Test 05/03/17 07:15 Estimat Glomerular Filtration Rate 86 ML/MIN (>89) Cholesterol Level 214 MG/DL (120-200) LDL Cholesterol 159 MG/DL (0-99) HDL Cholesterol 33.2 MG/DL (40.0-60.0) Laboratory Results Test 05/03/17 07:15 Cholesterol Level 214 MG/DL (120-200) HDL Cholesterol 33.2 MG/DL (40.0-60.0) LDL Cholesterol 159 MG/DL (0-99) Triglycerides Level 111 MG/DL (42-150) Summary of Procedures None done Pending results at discharge: No Medications # of Antipsychotic meds at D/C: 0 Approp Antipsych med options 1 - Minimum of three failed multiple trials of monotherapy. 2 - Documented plan to taper to monotherapy due to previous use of multiple meds OR cross-taper in progress at D/C. 3 - Documentation of augmentation of Clozapine. 4 - Justification other than those listed in allowable values 1-3, document here : Discharge Discharge Date: May 03, 2017 Discharge Diagnosis: (1) Adjustment disorder with depressed mood Diagnosis: Principal ICD Code: F43.21 - Adjustment disorder with depressed mood (2) ETOH abuse Diagnosis: Secondary ICD Code: F10.10 - Alcohol abuse, uncomplicated Status: Chronic Pt Condition on Discharge: Stable Discharge Disposition: Discharge Home Discharge Instructions Diet Instructions: As Tolerated, No Restrictions Activities you can perform: Regular-No Restrictions Scheduled Appointment: [facility] (mental health assessment, outpatient voluntary substance abuse assessment, refer also to AA) Discharge Time > 30 minutes Mental Status Examination Appearance: Appropriate Consciousness: Alert Orientation: x4 Motor Activity: Normal gait Speech: Unremarkable Language: Adequate Fund of Knowledge: Adequate Attention and Concentration: Adequate Memory: Unremarkable Mood: Other (euthymic) Affect: Other (good range and intensity) Thought Process & Associations: Intact Thought Content: Appropriate Hallucination Type: None Delusion Type: None Suicidal Ideation: No Suicidal Plan: No Suicidal Intention: No Homicidal Ideation: No Homicidal Plan: No Homicidal Intention: No Insight: Adequate Judgment: Adequate Discharge/Advance Care Plan Health Problems: (1) Adjustment disorder with depressed mood (2) ETOH abuse Goals to promote your health * To prevent worsening of your condition and complications * To maintain your health at the optimal level Directions to meet your goals Take your medications as prescribed Follow your dietary instruction Follow activity as directed Keep your appointments as scheduled Take your immunizations and boosters as scheduled If your symptoms worsen call your PCP, if no PCP go to Urgent Care Center or Emergency Room For 12/12 questions related to your inpatient stay or results of tests pending at discharge, please contact Dr. Derrick Sherman at Smoking is Dangerous to Your Health. Avoid second hand smoking Derrick Sherman MD May 03, 2017 14:04
[2017-05-03 16:17] LABS: HEMOGLOBIN F 0.2 %
[2017-05-03 17:28] LABS: HEMOGLOBIN A1a 1.1 %; HEMOGLOBIN A1b 1.4 %; HEMOGLOBIN Ao 87.2 %; HEMOGLOBIN LA1C 1.7 %; HEMOGLOBIN P3 3.1 %
== END 2017-05-03 16:00 | disposition home or self-care (01) | DRG 881 ==
LOC: H260 15:45
PROVIDERS: ADMIT Psychiatry & Neurology Psychiatry; ATTEND Psychiatry & Neurology Psychiatry
DX: F43.21 Adjustment disorder with depressed mood (principal); E66.9 Obesity, unspecified; R06.83 Snoring; F10.10 Alcohol abuse, uncomplicated; Y90.7 Blood alcohol level of 200-239 mg/100 ml; Z91.5 Personal history of self-harm
CPT/HCPCS: 80048; 80061; 83036